=== PATIENT | female | born 1955 | race African-American/Black ===

== ENCOUNTER 2021-02-02 16:19 | Emergency (ER) | payer OTHER ==
[2021-02-02 17:13] VITALS: BP 167/90; PULSE 90; TEMP 98.6; BMI 23.4
[2021-02-02] MEDS ORDERED: LIDOCAINE 5% TOPICAL PATCH TP ONE (18:03)
[2021-02-02] MEDS ORDERED: ACETAMINOPHEN 1000 MG/100 ML VIAL IVPB ONE (18:03)
[2021-02-02] MEDS ORDERED: ACETAMINOPHEN 325 MG TABLET (FP) PO ONE (18:22)
[2021-02-02] MEDS ORDERED: LIDOCAINE 5% TOPICAL PATCH ONE (18:33)
[2021-02-02] MEDS ORDERED: ACETAMINOPHEN 325 MG TABLET (FP) ONE (18:34)
[2021-02-02 19:27] LABS: EOS % 1.6 % (0-4.5); HEMATOCRIT 37.8 % (32.4-45.2); HEMOGLOBIN 12.9 GM/dL (10.7-15.3); LYMPH % 26.2 % (8-40); MCH 31.6 pg (25.7-33.7); MCHC 34.2 g/dl (32.0-36.0); MEAN CELL VOLUME 92.3 fl (80-96); MONO % 11.2 % (3.8-10.2); PLATELET COUNT 214 10^3/uL (134-434); RDW 13.5 % (11.6-15.6); WHITE BLOOD COUNT 6.1 K/mm3 (4.0-10.0)
[2021-02-02 19:28] LABS: CALCIUM 9.3 mg/dL (8.5-10.1)
[2021-02-02 19:29] LABS: ALBUMIN 3.7 g/dl (3.4-5.0)
[2021-02-02 19:32] LABS: CREATININE 1.1 mg/dL (0.55-1.3)
[2021-02-02 19:33] LABS: BILIRUBIN,TOTAL 0.8 mg/dL (0.2-1); TOT PROT 7.6 g/dl (6.4-8.2)
[2021-02-02] MEDS ORDERED: KETOROLAC TROMETHAMINE 15 MG/ML VIAL IVPUSH ONE (20:33)
[2021-02-02] MEDS ORDERED: KETOROLAC TROMETHAMINE 30 MG/1 ML VIAL ONE (22:00)
[2021-02-03] MEDS ORDERED: LIDOCAINE PATCH REMOVAL MC SCH (06:00)
== END 2021-02-02 22:27 | disposition home or self-care (01) ==
LOC: JER 16:19
PROC: 3E033GC Introduction of Other Therapeutic Substance into Peripheral Vein, Percutaneous Approach (ICD-10-PCS; principal; 2021-02-02)
DX: M54.50 Low back pain, unspecified (principal)
CPT/HCPCS: 36415; 72131-TC; 80053; 85025; 99285-25

== ENCOUNTER 2021-05-09 05:44 | Inpatient (IN) | payer OTHER ==
[2021-05-09 06:56] LABS: BASO % 0.6 % (0-2.0); EOS % 1.2 % (0-4.5); HEMATOCRIT 39.9 % (32.4-45.2); HEMOGLOBIN 13.4 GM/dL (10.7-15.3); MCHC 33.7 g/dl (32.0-36.0); MONO % 9.7 % (3.8-10.2); NEUT % 67.5 % (42.8-82.8); PLATELET COUNT 223 10^3/uL (134-434); RBC 4.34 M/mm3 (3.60-5.2); RDW 14.3 % (11.6-15.6); WHITE BLOOD COUNT 4.7 K/mm3 (4.0-10.0)
[2021-05-09 07:04] LABS: INR 0.98 (0.83-1.09); PROTHROMBIN TIME (PATIENT) 11.3 SEC (9.7-13.0)
[2021-05-09 07:07] LABS: ACTIVATED PTT 29.7 SECONDS (25.2-36.5)
[2021-05-09] MEDS ORDERED: ASPIRIN 81 MG CHEWABLE TABLETS PO ONE (08:20)
[2021-05-09] MEDS ORDERED: ASPIRIN 81 MG CHEWABLE TABLETS ONE (08:32)
[2021-05-09 10:13] LABS: ALBUMIN 3.7 g/dl (3.4-5.0); CALCIUM 9.2 mg/dL (8.5-10.1)
[2021-05-09 10:18] LABS: BILIRUBIN,TOTAL 0.6 mg/dL (0.2-1); TOT PROT 7.2 g/dl (6.4-8.2)
[2021-05-09] MEDS: SODIUM CHLORIDE 1,000 ML IV SCH ×2 (16:29→22:00)
[2021-05-09 21:49] VITALS: BMI 23.4
[2021-05-10] MEDS: INSULIN SLIDING SCALE (NOVOLOG) 1 VIAL SQ SCH ×2 (06:03→12:28)
[2021-05-10 07:11] LABS: BASO % 0.7 % (0-2.0); HEMATOCRIT 39.2 % (32.4-45.2); MCH 30.8 pg (25.7-33.7); MCHC 33.2 g/dl (32.0-36.0); MEAN PLT VOLUME 8.6 fl (7.5-11.1); MONO % 8.8 % (3.8-10.2); NEUT % 56.5 % (42.8-82.8); PLATELET COUNT 226 10^3/uL (134-434); RBC 4.22 M/mm3 (3.60-5.2); RDW 14.2 % (11.6-15.6); WHITE BLOOD COUNT 4.1 K/mm3 (4.0-10.0)
[2021-05-10 07:36] LABS: ALBUMIN 3.7 g/dl (3.4-5.0); BLOOD UREA NITROGEN 14.6 mg/dL (7-18); CALCIUM 8.7 mg/dL (8.5-10.1); MAGNESIUM 2.2 mg/dL (1.8-2.4)
[2021-05-10 07:39] LABS: BILIRUBIN,TOTAL 0.7 mg/dL (0.2-1); CREATININE 1.1 mg/dL (0.55-1.3); TOT PROT 7.4 g/dl (6.4-8.2)
[2021-05-10 08:15] LABS: URINE APPEARANCE CLEAR; URINE BILIRUBIN NEGATIVE (NEGATIVE); URINE COLOR YELLOW; URINE GLUCOSE (UA) 3+ (NEGATIVE); URINE KETONE NEGATIVE (NEGATIVE); URINE LEUK ESTERASE NEGATIVE (NEGATIVE); URINE NITRITE NEGATIVE (NEGATIVE); URINE PROTEIN NEGATIVE (NEGATIVE); URINE UROBILINOGEN 0.2 mg/dL (0.2-1.0)
[2021-05-10] MEDS ORDERED: ENOXAPARIN NA (PORCINE) 40 MG/0.4 ML DISP.SYRIN SQ SCH (10:00)
[2021-05-10 10:11] VITALS: BP 116/56; PULSE 91; TEMP 98.1
== END 2021-05-10 18:19 | disposition home or self-care (01) | DRG 312 ==
LOC: JER 05:44 → JERBED 11:27 → OBSVTOIN 12:54 → J4W 19:33
PROVIDERS: ADMIT Internal Medicine
DX: R55 Syncope and collapse (principal); I10 Essential (primary) hypertension; E11.9 Type 2 diabetes mellitus without complications; R42 Dizziness and giddiness; R60.0 Localized edema; E78.5 Hyperlipidemia, unspecified
CPT/HCPCS: 36415; 70450-TC; 71045-TC-FY; 72125-TC; 80053; 80061; 81003; 82550; 82962; 83036; 83735; 84100; 84443; 84484; 85025; 85027; 85610; 85730; 87086; 93005; 93010; 93306-TC; 93880-TC; 99285-25; C9803-CS; G0378; U0003; U0005

== ENCOUNTER 2021-05-16 04:35 | Emergency (ER) | payer OTHER ==
[2021-05-16] MEDS ORDERED: ACETAMINOPHEN 325 MG TABLET (FP) PO ONE ×3 (05:10→05:27)
[2021-05-16] MEDS ORDERED: ACETAMINOPHEN 325 MG TABLET (FP) ONE (05:23)
[2021-05-16 05:24] VITALS: BMI 24.6
[2021-05-16] MEDS ORDERED: LIDOCAINE HCL 2% (50ML VIAL) SQ ONE (06:38)
[2021-05-16] MEDS ORDERED: LIDOCAINE HCL 2% (20ML MULTI-DOSE VIAL) ONE (06:44)
[2021-05-16 08:50] VITALS: TEMP 98.1
[2021-05-16 14:47] VITALS: BP 162/61; PULSE 82
== END 2021-05-16 13:30 ==
LOC: JER 04:35
PROC: 0PSJXZZ Reposition Left Radius, External Approach (ICD-10-PCS; principal; 2021-05-16)
DX: S69.92XA Unspecified injury of left wrist, hand and finger(s), initial encounter (principal); E16.2 Hypoglycemia, unspecified; W01.0XXA Fall on same level from slipping, tripping and stumbling without subsequent striking against object, initial encounter
CPT/HCPCS: 73090-TC-LT-FY; 73110-TC-LT-FY; 73130-TC-LT-FY; 82962; 93005; 93010; 99285-25

== ENCOUNTER 2021-05-19 14:50 | Emergency (ER) | payer OTHER ==
[2021-05-19 15:18] VITALS: BP 138/71; PULSE 88; TEMP 98.4; BMI 21.1
== END 2021-05-19 23:11 | disposition home or self-care (01) ==
LOC: JER 14:50
DX: S52.502A Unspecified fracture of the lower end of left radius, initial encounter for closed fracture (principal); Y99.9 Unspecified external cause status; Z48.00 Encounter for change or removal of nonsurgical wound dressing
CPT/HCPCS: 73110-TC-LT-FY; 82962; 99284-25

== ENCOUNTER 2021-06-05 03:44 | Observation (INO) | payer OTHER ==
[2021-06-05 05:51] LABS: BASO % 1.1 % (0-2.0); EOS % 1.3 % (0-4.5); HEMATOCRIT 40.5 % (32.4-45.2); HEMOGLOBIN 13.4 GM/dL (10.7-15.3); LYMPH % 23.5 % (8-40); MCH 30.6 pg (25.7-33.7); MCHC 33.2 g/dl (32.0-36.0); MEAN CELL VOLUME 92.3 fl (80-96); MEAN PLT VOLUME 8.7 fl (7.5-11.1); MONO % 10.4 % (3.8-10.2); NEUT % 63.7 % (42.8-82.8); PLATELET COUNT 258 10^3/uL (134-434); RBC 4.39 M/mm3 (3.60-5.2); RDW 14.9 % (11.6-15.6); WHITE BLOOD COUNT 4.3 K/mm3 (4.0-10.0)
[2021-06-05] MEDS ORDERED: LACTATED RINGERS SOLUTION 1000 ML INFUS.BAG IV ONE (05:53)
[2021-06-05 06:12] LABS: CALCIUM 9.3 mg/dL (8.5-10.1)
[2021-06-05 06:13] LABS: BLOOD UREA NITROGEN 15.2 mg/dL (7-18); MAGNESIUM 2.5 mg/dL (1.8-2.4)
[2021-06-05 06:17] LABS: BILIRUBIN,TOTAL 0.5 mg/dL (0.2-1)
[2021-06-05 06:18] LABS: TOT PROT 7.6 g/dl (6.4-8.2)
[2021-06-05 06:34] LABS: PH,URINE 7.5 (5.0-8.0); URINE APPEARANCE CLOUDY; URINE BILIRUBIN NEGATIVE (NEGATIVE); URINE COLOR YELLOW; URINE GLUCOSE (UA) NEGATIVE (NEGATIVE); URINE KETONE NEGATIVE (NEGATIVE); URINE LEUK ESTERASE NEGATIVE (NEGATIVE); URINE NITRITE NEGATIVE (NEGATIVE); URINE PROTEIN NEGATIVE (NEGATIVE)
[2021-06-05] MEDS ORDERED: SODIUM CHLORIDE 1,000 ML IV SCH (09:00)
[2021-06-05] MEDS: INSULIN SLIDING SCALE (NOVOLOG) 1 VIAL SQ SCH ×3 (11:45→22:00)
[2021-06-05] MEDS: ENOXAPARIN NA (PORCINE) 40 MG/0.4 ML DISP.SYRIN SQ SCH (11:46)
[2021-06-05] MEDS: SODIUM CHLORIDE 1,000 ML IV SCH (14:21)
[2021-06-05] MEDS ORDERED: INSULIN (NOVOLOG) ASPART 100 UNITS/ML 10ML VIAL ONE (16:30)
[2021-06-05] MEDS: DONEPEZIL HCL 5 MG TABLET (FP) PO SCH (21:56)
[2021-06-05] MEDS: ATORVASTATIN CA 10 MG TABLET (FP) PO SCH (21:56)
[2021-06-06] MEDS: INSULIN SLIDING SCALE (NOVOLOG) 1 VIAL SQ SCH ×4 (06:32→21:22)
[2021-06-06 08:27] LABS: HEMOGLOBIN 12.7 GM/dL (10.7-15.3); MCH 31.1 pg (25.7-33.7); MCHC 33.6 g/dl (32.0-36.0); MEAN CELL VOLUME 92.6 fl (80-96); MEAN PLT VOLUME 9.2 fl (7.5-11.1); PLATELET COUNT 165 10^3/uL (134-434); RDW 14.3 % (11.6-15.6); WHITE BLOOD COUNT 4.2 K/mm3 (4.0-10.0)
[2021-06-06 09:05] LABS: BLOOD UREA NITROGEN 8.1 mg/dL (7-18); MAGNESIUM 2.3 mg/dL (1.8-2.4)
[2021-06-06 09:08] LABS: CREATININE 0.9 mg/dL (0.55-1.3)
[2021-06-06 09:09] LABS: PHOSPHOROUS 3.2 mg/dL (2.5-4.9)
[2021-06-06] MEDS: ENOXAPARIN NA (PORCINE) 40 MG/0.4 ML DISP.SYRIN SQ SCH (10:18)
[2021-06-06] MEDS ORDERED: INSULIN (NOVOLOG) ASPART 100 UNITS/ML 10ML VIAL ONE ×4 (12:08→20:57)
[2021-06-06] MEDS: ASPIRIN COATED 81 MG TABLET.EC PO SCH (12:18)
[2021-06-06 14:47] VITALS: BMI 23.2
[2021-06-06] MEDS: SODIUM CHLORIDE 1,000 ML IV SCH (21:23)
[2021-06-06] MEDS: ATORVASTATIN CA 10 MG TABLET (FP) PO SCH (21:23)
[2021-06-06] MEDS: DONEPEZIL HCL 5 MG TABLET (FP) PO SCH (21:23)
[2021-06-07] MEDS: INSULIN SLIDING SCALE (NOVOLOG) 1 VIAL SQ SCH (07:37)
[2021-06-07 08:31] LABS: BASO % 0.6 % (0-2.0); EOS % 1.9 % (0-4.5); HEMATOCRIT 37.5 % (32.4-45.2); HEMOGLOBIN 12.3 GM/dL (10.7-15.3); LYMPH % 27.1 % (8-40); MCH 30.3 pg (25.7-33.7); MCHC 32.9 g/dl (32.0-36.0); MEAN CELL VOLUME 92.1 fl (80-96); MEAN PLT VOLUME 9.3 fl (7.5-11.1); NEUT % 57.4 % (42.8-82.8); PLATELET COUNT 233 10^3/uL (134-434); RBC 4.07 M/mm3 (3.60-5.2); RDW 13.9 % (11.6-15.6); WHITE BLOOD COUNT 3.6 K/mm3 (4.0-10.0)
[2021-06-07 08:57] LABS: BLOOD UREA NITROGEN 10.4 mg/dL (7-18); CALCIUM 8.9 mg/dL (8.5-10.1); MAGNESIUM 1.9 mg/dL (1.8-2.4)
[2021-06-07] MEDS: ENOXAPARIN NA (PORCINE) 40 MG/0.4 ML DISP.SYRIN SQ SCH (09:51)
[2021-06-07] MEDS: ASPIRIN COATED 81 MG TABLET.EC PO SCH (09:51)
[2021-06-07] MEDS: SODIUM CHLORIDE 1,000 ML IV SCH (09:56)
[2021-06-07] MEDS ORDERED: INSULIN SLIDING SCALE (NOVOLOG) 1 VIAL SQ SCH (09:58)
[2021-06-07] MEDS ORDERED: LOSARTAN POTASSIUM 50 MG TABLET PO SCH (10:00)
[2021-06-07] MEDS ORDERED: INSULIN (NOVOLOG) ASPART 100 UNITS/ML 10ML VIAL ONE (11:19)
[2021-06-07] MEDS: INSULIN (LEVEMIR) 100 UNITS/ML UNITS SQ SCH ×2 (11:21→11:23)
[2021-06-07 15:50] VITALS: BP 117/74; PULSE 77; TEMP 99.1
== END 2021-06-07 17:35 | disposition home or self-care (01) ==
LOC: JER 03:44 → JERBED 05:52 → INTOOBSV 05:52 → UNDOADMOB 05:52 → JERBED 08:28 → J8W 09:25
PROVIDERS: ADMIT Internal Medicine; ATTEND Internal Medicine
PROC: 3E023GC Introduction of Other Therapeutic Substance into Muscle, Percutaneous Approach (ICD-10-PCS; principal; 2021-06-05)
PROC: 3E013VG Introduction of Insulin into Subcutaneous Tissue, Percutaneous Approach (ICD-10-PCS; 2021-06-05)
PROC: 3E0337Z Introduction of Electrolytic and Water Balance Substance into Peripheral Vein, Percutaneous Approach (ICD-10-PCS; 2021-06-05)
DX: E10.649 Type 1 diabetes mellitus with hypoglycemia without coma (principal); E86.0 Dehydration; J45.909 Unspecified asthma, uncomplicated; R55 Syncope and collapse; R53.1 Weakness; Z91.018 Allergy to other foods; Z96.651 Presence of right artificial knee joint; Z29.8 Encounter for other specified prophylactic measures; Z88.0 Allergy status to penicillin
CPT/HCPCS: 36415; 59025; 70450-TC; 80048; 80053; 81003; 82962; 83036; 83735; 84100; 84484; 85025; 85027; 86850; 86900; 86901; 87086; 93005; 93010; 93880-TC; 96360; 96372; 97116-GP; 97161-GP; 99285-25; C9803-CS; G0378; G0463-25; U0003; U0005

== ENCOUNTER 2021-06-22 07:15 | Emergency (ER) | payer OTHER ==
[2021-06-22 08:12] LABS: EOS % 0.9 % (0-4.5); HEMATOCRIT 39.2 % (32.4-45.2); HEMOGLOBIN 12.8 GM/dL (10.7-15.3); MCH 30.4 pg (25.7-33.7); MCHC 32.7 g/dl (32.0-36.0); MEAN CELL VOLUME 93.2 fl (80-96); MEAN PLT VOLUME 8.9 fl (7.5-11.1); MONO % 10.7 % (3.8-10.2); NEUT % 62.4 % (42.8-82.8); PLATELET COUNT 240 10^3/uL (134-434); RBC 4.21 M/mm3 (3.60-5.2); RDW 14.6 % (11.6-15.6); WHITE BLOOD COUNT 4.4 K/mm3 (4.0-10.0)
[2021-06-22 08:22] VITALS: TEMP 98.4; BMI 21.4
[2021-06-22 08:32] LABS: BLOOD UREA NITROGEN 13.8 mg/dL (7-18); CALCIUM 9.4 mg/dL (8.5-10.1)
[2021-06-22 08:33] LABS: ALBUMIN 3.7 g/dl (3.4-5.0)
[2021-06-22 08:38] LABS: BILIRUBIN,TOTAL 0.7 mg/dL (0.2-1); TOT PROT 7.2 g/dl (6.4-8.2)
[2021-06-22 10:11] LABS: EPI CELLS >36 /uL (0-25.1); HYALINE CASTS 2 /uL (0-3.1); URINE APPEARANCE CLEAR; URINE BACTERIA 134 /uL (0-1359); URINE BILIRUBIN NEGATIVE (NEGATIVE); URINE COLOR YELLOW; URINE GLUCOSE (UA) 1+ (NEGATIVE); URINE KETONE 1+ (NEGATIVE); URINE LEUK ESTERASE TRACE (NEGATIVE); URINE NITRITE NEGATIVE (NEGATIVE); URINE PROTEIN 1+ (NEGATIVE); URINE RBC 9 /uL (0-23.9); URINE WBC 14 /uL (0-25.8)
[2021-06-22 11:09] VITALS: BP 162/80; PULSE 82
== END 2021-06-22 12:47 ==
LOC: JER 07:15
DX: R42 Dizziness and giddiness (principal); R51.9 Headache, unspecified; E04.1 Nontoxic single thyroid nodule; W06.XXXA Fall from bed, initial encounter
CPT/HCPCS: 36415; 70450-TC; 71045-TC-FY; 72125-TC; 80053; 81003; 82962; 84484; 85025; 87086; 93005; 93010; 99285-25

== ENCOUNTER 2021-07-02 07:05 | Emergency (ER) | payer OTHER ==
[2021-07-02 07:22] VITALS: BMI 23.4
[2021-07-02 08:30] LABS: BASO % 0.4 % (0-2.0); HEMOGLOBIN 13.9 GM/dL (10.7-15.3); LYMPH % 23.8 % (8-40); MCH 30.7 pg (25.7-33.7); MCHC 33.2 g/dl (32.0-36.0); MEAN CELL VOLUME 92.5 fl (80-96); MEAN PLT VOLUME 8.1 fl (7.5-11.1); MONO % 8.2 % (3.8-10.2); NEUT % 65.6 % (42.8-82.8); PLATELET COUNT 267 10^3/uL (134-434); RBC 4.54 M/mm3 (3.60-5.2); RDW 14.8 % (11.6-15.6); WHITE BLOOD COUNT 4.4 K/mm3 (4.0-10.0)
[2021-07-02 09:24] LABS: EPI CELLS >36 /uL (0-25.1); HYALINE CASTS 4 /uL (0-3.1); URINE APPEARANCE CLEAR; URINE BACTERIA 83 /uL (0-1359); URINE BILIRUBIN NEGATIVE (NEGATIVE); URINE COLOR YELLOW; URINE GLUCOSE (UA) NEGATIVE (NEGATIVE); URINE KETONE 1+ (NEGATIVE); URINE LEUK ESTERASE 2+ (NEGATIVE); URINE NITRITE NEGATIVE (NEGATIVE); URINE PROTEIN TRACE (NEGATIVE); URINE RBC 12 /uL (0-23.9); URINE WBC 273 /uL (0-25.8)
[2021-07-02 09:26] LABS: ALBUMIN 4.1 g/dl (3.4-5.0); BLOOD UREA NITROGEN 13.2 mg/dL (7-18); CALCIUM 9.6 mg/dL (8.5-10.1)
[2021-07-02 09:28] LABS: MAGNESIUM 2.4 mg/dL (1.8-2.4)
[2021-07-02 09:32] LABS: BILIRUBIN,TOTAL 0.7 mg/dL (0.2-1); TOT PROT 7.9 g/dl (6.4-8.2)
[2021-07-02] MEDS ORDERED: SULFAMETHOXAZOLE/TRIMETHOPRIM 800MG/160MG D.S. TABLET PO ONE (11:23)
[2021-07-02] MEDS ORDERED: SULFAMETHOXAZOLE/TRIMETHOPRIM 800MG/160MG D.S. TABLET ONE (11:36)
[2021-07-02 11:42] VITALS: BP 136/79; PULSE 72; TEMP 97.4
== END 2021-07-02 12:32 | disposition home or self-care (01) ==
LOC: JER 07:05
DX: R73.9 Hyperglycemia, unspecified (principal); R55 Syncope and collapse; E11.9 Type 2 diabetes mellitus without complications; Z79.4 Long term (current) use of insulin
CPT/HCPCS: 36415; 70450-TC; 71046-TC-FY; 72125-TC; 80053; 81003; 82550; 82553; 82962; 83735; 84484; 85025; 87086; 93005; 93010; 99285-25

== ENCOUNTER 2021-10-30 18:19 | Inpatient (IN) | payer OTHER ==
[2021-10-30 18:39] VITALS: BMI 21.4
[2021-10-30 19:10] LABS: VENOUS O2 SATURATION 42.6 % (70-80); VENOUS PCO2 47.6 mmHg (38-52); VENOUS PH 7.341 (7.310-7.410)
[2021-10-30 19:11] LABS: BASO % 1.1 % (0-2.0); EOS % 1.9 % (0-4.5); HEMATOCRIT 37.4 % (32.4-45.2); HEMOGLOBIN 12.5 GM/dL (10.7-15.3); MCH 31.6 pg (25.7-33.7); MCHC 33.5 g/dl (32.0-36.0); MEAN CELL VOLUME 94.2 fl (80-96); MEAN PLT VOLUME 8.5 fl (7.5-11.1); MONO % 8.5 % (3.8-10.2); NEUT % 67.5 % (42.8-82.8); PLATELET COUNT 199 10^3/uL (134-434); RBC 3.97 M/mm3 (3.60-5.2); RDW 14.2 % (11.6-15.6); WHITE BLOOD COUNT 5.9 K/mm3 (4.0-10.0)
[2021-10-30] MEDS ORDERED: LACTATED RINGERS SOLUTION 1000 ML INFUS.BAG IV ONE (19:25)
[2021-10-30] MEDS ORDERED: dilTIAZem HCL 50 MG/10 ML - 10 ML VIAL IVPUSH ONE ×2 (19:26→20:36)
[2021-10-30 19:31] LABS: ALBUMIN 3.5 g/dl (3.4-5.0)
[2021-10-30 19:32] LABS: BLOOD UREA NITROGEN 19.9 mg/dL (7-18); MAGNESIUM 2.3 mg/dL (1.8-2.4)
[2021-10-30 19:35] LABS: CREATININE 1.4 mg/dL (0.55-1.3)
[2021-10-30 19:36] LABS: BILIRUBIN,TOTAL 0.5 mg/dL (0.2-1); TOT PROT 6.9 g/dl (6.4-8.2)
[2021-10-30 20:02] LABS: EPI CELLS 13 /uL (0-25.1); HYALINE CASTS 0 /uL (0-3.1); URINE APPEARANCE CLEAR; URINE BACTERIA 64 /uL (0-1359); URINE BILIRUBIN NEGATIVE (NEGATIVE); URINE COLOR YELLOW; URINE GLUCOSE (UA) 2+ (NEGATIVE); URINE KETONE NEGATIVE (NEGATIVE); URINE LEUK ESTERASE 1+ (NEGATIVE); URINE NITRITE NEGATIVE (NEGATIVE); URINE PROTEIN NEGATIVE (NEGATIVE); URINE RBC 5 /uL (0-23.9); URINE UROBILINOGEN 0.2 mg/dL (0.2-1.0); URINE WBC 46 /uL (0-25.8)
[2021-10-30] MEDS ORDERED: dilTIAZem HCL 125 MG/25 ML - 25 ML VIAL ONE (20:03)
[2021-10-30] MEDS ORDERED: dilTIAZem HCL 30 MG TABLET PO ONE (20:36)
[2021-10-30] MEDS ORDERED: dilTIAZem HCL 30 MG TABLET ONE (21:42)
[2021-10-31] MEDS ORDERED: APIXABAN 2.5 MG TABLET PO ONE (01:49)
[2021-10-31] MEDS ORDERED: APIXABAN 2.5 MG TABLET ONE (02:26)
[2021-10-31 02:31] VITALS: RESP 18
[2021-10-31 07:30] LABS: BASO % 0.7 % (0-2.0); EOS % 1.4 % (0-4.5); HEMATOCRIT 38.9 % (32.4-45.2); HEMOGLOBIN 12.9 GM/dL (10.7-15.3); LYMPH % 25.2 % (8-40); MCHC 33.2 g/dl (32.0-36.0); MEAN CELL VOLUME 93.4 fl (80-96); MEAN PLT VOLUME 9.2 fl (7.5-11.1); MONO % 10.9 % (3.8-10.2); NEUT % 61.8 % (42.8-82.8); PLATELET COUNT 217 10^3/uL (134-434); RBC 4.16 M/mm3 (3.60-5.2); RDW 13.9 % (11.6-15.6); WHITE BLOOD COUNT 4.4 K/mm3 (4.0-10.0)
[2021-10-31 07:56] LABS: BLOOD UREA NITROGEN 13.8 mg/dL (7-18); CALCIUM 8.4 mg/dL (8.5-10.1)
[2021-10-31 07:57] LABS: ALBUMIN 3.2 g/dl (3.4-5.0)
[2021-10-31 07:59] LABS: CREATININE 1.1 mg/dL (0.55-1.3)
[2021-10-31 08:01] LABS: BILIRUBIN,TOTAL 0.6 mg/dL (0.2-1); TOT PROT 6.3 g/dl (6.4-8.2)
[2021-10-31] MEDS ORDERED: PATIENT'S OWN MEDICATION (NON-FORMULARY) (Insulin Aspart [Novolog Flexpen] 100 UNIT/ML Ins SQ SCH (09:00)
[2021-10-31] MEDS ORDERED: ATORVASTATIN CA 40 MG TABLET (FP) ONE (09:21)
[2021-10-31] MEDS: ATORVASTATIN CA 10 MG TABLET (FP) PO SCH (09:44)
[2021-10-31] MEDS: LOSARTAN POTASSIUM 50 MG TABLET PO SCH (09:44)
[2021-10-31] MEDS ORDERED: LOSARTAN POTASSIUM 50 MG TABLET PO SCH (10:00)
[2021-10-31] MEDS ORDERED: DONEPEZIL HCL 5 MG TABLET (FP) PO SCH (10:00)
[2021-10-31 10:05] LABS: PHOSPHOROUS 2.8 mg/dL (2.5-4.9)
[2021-10-31 10:09] LABS: N-TERMINAL BNP 397.5 pg/ml (5-125)
[2021-10-31] MEDS ORDERED: INSULIN (NOVOLOG) ASPART 100 UNITS/ML 10ML VIAL ONE (13:26)
[2021-10-31] MEDS: INSULIN SLIDING SCALE (NOVOLOG) 1 VIAL SQ SCH ×2 (13:27→23:35)
[2021-11-01] MEDS ORDERED: INSULIN (LEVEMIR) 100 UNITS/ML UNITS SQ SCH (07:00)
[2021-11-01] MEDS: INSULIN SLIDING SCALE (NOVOLOG) 1 VIAL SQ SCH ×2 (08:01→12:22)
[2021-11-01 08:19] LABS: BASO % 1.3 % (0-2.0); EOS % 1.6 % (0-4.5); HEMATOCRIT 42.2 % (32.4-45.2); HEMOGLOBIN 13.8 GM/dL (10.7-15.3); LYMPH % 32.5 % (8-40); MCH 30.8 pg (25.7-33.7); MCHC 32.8 g/dl (32.0-36.0); MEAN CELL VOLUME 93.9 fl (80-96); MONO % 7.7 % (3.8-10.2); NEUT % 56.9 % (42.8-82.8); PLATELET COUNT 247 10^3/uL (134-434); RBC 4.49 M/mm3 (3.60-5.2); WHITE BLOOD COUNT 5.2 K/mm3 (4.0-10.0)
[2021-11-01 08:49] LABS: BLOOD UREA NITROGEN 15.8 mg/dL (7-18); CALCIUM 9.1 mg/dL (8.5-10.1)
[2021-11-01 08:52] LABS: CREATININE 1.2 mg/dL (0.55-1.3)
[2021-11-01] MEDS ORDERED: ASPIRIN 81 MG CHEWABLE TABLETS PO SCH (10:00)
[2021-11-01] MEDS ORDERED: ASPIRIN 81 MG CHEWABLE TABLETS ONE (12:07)
[2021-11-01] MEDS ORDERED: LOSARTAN POTASSIUM 50 MG TABLET ONE (12:08)
[2021-11-01] MEDS ORDERED: ATORVASTATIN CA 10 MG TABLET (FP) ONE (12:09)
[2021-11-01 12:20] VITALS: BP 165/73; PULSE 79; TEMP 98.1
[2021-11-01] MEDS: ATORVASTATIN CA 10 MG TABLET (FP) PO SCH (12:22)
[2021-11-01] MEDS: LOSARTAN POTASSIUM 50 MG TABLET PO SCH (12:22)
== END 2021-11-01 12:35 | disposition home or self-care (01) | DRG 639 ==
LOC: JER 18:19 → JERBED 21:54
PROVIDERS: ADMIT Internal Medicine; ATTEND Internal Medicine
DX: E11.649 Type 2 diabetes mellitus with hypoglycemia without coma (principal); R55 Syncope and collapse; I48.91 Unspecified atrial fibrillation; I10 Essential (primary) hypertension; I87.2 Venous insufficiency (chronic) (peripheral); E78.5 Hyperlipidemia, unspecified; E86.0 Dehydration; F03.90 Unspecified dementia, unspecified severity, without behavioral disturbance, psychotic disturbance, mood disturbance, and anxiety
CPT/HCPCS: 0241U-QW; 36415; 70450-TC; 71045-TC-FY; 80048; 80053; 80061; 81003; 82803; 82962; 83036; 83735; 83880; 84100; 84439; 84443; 84484; 85025; 87086; 93005; 93010; 93306-TC; 99285-25

== ENCOUNTER 2021-12-25 20:53 | Emergency (ER) | payer OTHER ==
[2021-12-25 21:24] VITALS: BP 136/67; PULSE 79; RESP 17; TEMP 97.3; BMI 21.9
== END 2021-12-26 02:42 ==
LOC: JER 20:53
DX: E16.2 Hypoglycemia, unspecified (principal)
CPT/HCPCS: 82962; 93005; 93010; 99284-25

== ENCOUNTER 2022-12-03 18:19 | Observation (INO) | payer OTHER ==
[2022-12-03 18:54] VITALS: BMI 28.3
[2022-12-03] MEDS ORDERED: SODIUM CHLORIDE 0.9% 500 ML INFUS.BAG IV ONE (20:03)
[2022-12-03 21:25] LABS: VENOUS BASE EXCESS 0.6 mmol/L (-2-2); VENOUS O2 SATURATION 45.7 % (70-80); VENOUS PH 7.338 (7.310-7.410)
[2022-12-03 21:28] LABS: BASO % 0.6 % (0-2.0); EOS % 0.7 % (0-4.5); HEMATOCRIT 39.5 % (32.4-45.2); HEMOGLOBIN 13.5 GM/dL (10.7-15.3); LYMPH % 16.3 % (8-40); MCH 31.8 pg (25.7-33.7); MCHC 34.1 g/dl (32.0-36.0); MEAN CELL VOLUME 93.3 fl (80-96); MEAN PLT VOLUME 7.4 fl (7.5-11.1); MONO % 5.5 % (3.8-10.2); NEUT % 76.9 % (42.8-82.8); PLATELET COUNT 231 10^3/uL (134-434); RBC 4.24 M/mm3 (3.60-5.2); RDW 13.7 % (11.6-15.6); WHITE BLOOD COUNT 8.3 K/mm3 (4.0-10.0)
[2022-12-03 21:35] LABS: INR 0.95 (0.83-1.09)
[2022-12-03 21:38] LABS: ACTIVATED PTT 30.7 SECONDS (25.2-36.5)
[2022-12-03 21:39] LABS: URINE APPEARANCE CLEAR; URINE BILIRUBIN NEGATIVE (NEGATIVE); URINE COLOR YELLOW; URINE GLUCOSE (UA) 3+ (NEGATIVE); URINE KETONE NEGATIVE (NEGATIVE); URINE LEUK ESTERASE NEGATIVE (NEGATIVE); URINE NITRITE NEGATIVE (NEGATIVE); URINE PROTEIN NEGATIVE (NEGATIVE)
[2022-12-03 21:47] LABS: POTASSIUM 3.8 mmol/L (3.5-5.1)
[2022-12-03 21:49] LABS: ALBUMIN 3.5 g/dl (3.4-5.0); CALCIUM 8.7 mg/dL (8.5-10.1)
[2022-12-03 21:50] LABS: BLOOD UREA NITROGEN 17.7 mg/dL (7-18); MAGNESIUM 2.1 mg/dL (1.8-2.4)
[2022-12-03 21:53] LABS: CREATININE 1.3 mg/dL (0.55-1.3)
[2022-12-03 21:54] LABS: BILIRUBIN,TOTAL 0.4 mg/dL (0.2-1); TOT PROT 7.1 g/dl (6.4-8.2)
[2022-12-04] MEDS ORDERED: DEXTROSE 5%-NORMAL SALINE 1,000 ML IV SCH (03:15)
[2022-12-04 06:24] VITALS: RESP 18
[2022-12-04] MEDS: INSULIN SLIDING SCALE (NOVOLOG) 1 VIAL SQ SCH ×2 (08:45→11:28)
[2022-12-04 09:00] LABS: BASO % 0.6 % (0-2.0); EOS % 2.5 % (0-4.5); HEMATOCRIT 41.1 % (32.4-45.2); HEMOGLOBIN 13.4 GM/dL (10.7-15.3); LYMPH % 27.7 % (8-40); MCH 30.9 pg (25.7-33.7); MCHC 32.6 g/dl (32.0-36.0); MEAN CELL VOLUME 94.9 fl (80-96); MEAN PLT VOLUME 8.8 fl (7.5-11.1); MONO % 9.3 % (3.8-10.2); NEUT % 59.9 % (42.8-82.8); PLATELET COUNT 210 10^3/uL (134-434); RBC 4.33 M/mm3 (3.60-5.2); RDW 13.6 % (11.6-15.6); WHITE BLOOD COUNT 6.8 K/mm3 (4.0-10.0)
[2022-12-04 09:20] LABS: POTASSIUM 4.2 mmol/L (3.5-5.1)
[2022-12-04 09:21] LABS: BLOOD UREA NITROGEN 13.9 mg/dL (7-18); CALCIUM 8.4 mg/dL (8.5-10.1)
[2022-12-04 09:25] LABS: CREATININE 1.1 mg/dL (0.55-1.3)
[2022-12-04] MEDS ORDERED: CITALOPRAM HYDROBROMIDE 10 MG TABLET PO SCH (10:00)
[2022-12-04] MEDS ORDERED: CALCIUM 500MG/VIT-D 200 UNITS COMBO TABLET (FP) PO SCH (10:00)
[2022-12-04] MEDS ORDERED: FUROSEMIDE 20 MG TABLET (FP) PO SCH (10:00)
[2022-12-04] MEDS ORDERED: DONEPEZIL HCL 5 MG TABLET (FP) PO SCH (10:00)
[2022-12-04] MEDS ORDERED: LOSARTAN POTASSIUM 50 MG TABLET PO SCH (10:00)
[2022-12-04 10:57] VITALS: BP 121/58; PULSE 62; TEMP 97.3
[2022-12-04] MEDS ORDERED: ATORVASTATIN CA 20 MG TABLET (FP) PO SCH (22:00)
== END 2022-12-04 11:55 ==
LOC: JER 18:19 → JERBED 22:44
PROVIDERS: ADMIT Internal Medicine
PROC: 3E0337Z Introduction of Electrolytic and Water Balance Substance into Peripheral Vein, Percutaneous Approach (ICD-10-PCS; principal; 2022-12-03)
PROC: 3E013VG Introduction of Insulin into Subcutaneous Tissue, Percutaneous Approach (ICD-10-PCS; 2022-12-03)
DX: E11.649 Type 2 diabetes mellitus with hypoglycemia without coma (principal); F03.90 Unspecified dementia, unspecified severity, without behavioral disturbance, psychotic disturbance, mood disturbance, and anxiety; R55 Syncope and collapse; J45.909 Unspecified asthma, uncomplicated; Z91.018 Allergy to other foods; Z88.0 Allergy status to penicillin
CPT/HCPCS: 36415; 70450-TC; 71045-TC-FY; 72125-TC; 72170-TC-FY; 80048; 80053; 81003; 82010; 82803; 82962; 83036; 83735; 84484; 85025; 85610; 85730; 87077; 87086; 93005; 93010; 96360; 96372; 99285-25; G0378

== ENCOUNTER 2022-12-23 20:32 | Inpatient (IN) | payer OTHER ==
[2022-12-23] MEDS ORDERED: ACETAMINOPHEN 650 MG/20.3 ML ORAL SOLUTION (CUPS) PO ONE (23:35)
[2022-12-24] MEDS ORDERED: ACETAMINOPHEN 650 MG/20.3 ML ORAL SOLUTION (CUPS) ONE (00:04)
[2022-12-24] MEDS ORDERED: IBUPROFEN 400 MG TABLET (FP) PO ONE ×2 (00:19→00:22)
[2022-12-24 02:58] LABS: BASO % 0.7 % (0-2.0); EOS % 0.9 % (0-4.5); HEMATOCRIT 39.6 % (32.4-45.2); HEMOGLOBIN 13.6 GM/dL (10.7-15.3); LYMPH % 15.3 % (8-40); MCH 31.4 pg (25.7-33.7); MCHC 34.5 g/dl (32.0-36.0); MEAN CELL VOLUME 91.3 fl (80-96); MEAN PLT VOLUME 8.6 fl (7.5-11.1); MONO % 12.1 % (3.8-10.2); PLATELET COUNT 235 10^3/uL (134-434); RBC 4.33 M/mm3 (3.60-5.2); RDW 13.5 % (11.6-15.6); WHITE BLOOD COUNT 10.1 K/mm3 (4.0-10.0)
[2022-12-24 03:04] LABS: INR 1.01 (0.83-1.09); PROTHROMBIN TIME (PATIENT) 11.7 SEC (9.7-13.0)
[2022-12-24 03:07] LABS: ACTIVATED PTT 29.9 SECONDS (25.2-36.5)
[2022-12-24 03:35] LABS: POTASSIUM 3.7 mmol/L (3.5-5.1)
[2022-12-24 03:37] LABS: CALCIUM 9.3 mg/dL (8.5-10.1)
[2022-12-24 03:38] LABS: ALBUMIN 3.4 g/dl (3.4-5.0); BLOOD UREA NITROGEN 42.6 mg/dL (7-18)
[2022-12-24 03:41] LABS: CREATININE 1.8 mg/dL (0.55-1.3)
[2022-12-24 03:43] LABS: BILIRUBIN,TOTAL 0.8 mg/dL (0.2-1)
[2022-12-24] MEDS ORDERED: SODIUM CHLORIDE 1,000 ML IV STA (03:49)
[2022-12-24] MEDS: HEPARIN NA (PORCINE) 5,000 UNITS/ML 1ML VIAL SQ SCH ×3 (06:54→23:21)
[2022-12-24] MEDS: INSULIN SLIDING SCALE (NOVOLOG) 1 VIAL SQ SCH ×4 (06:54→23:22)
[2022-12-24] MEDS ORDERED: INSULIN (LEVEMIR) 100 UNITS/ML UNITS SQ SCH (07:00)
[2022-12-24] MEDS ORDERED: SODIUM CHLORIDE 1,000 ML IV SCH (07:15)
[2022-12-24 07:48] LABS: BASO % 0.7 % (0-2.0); EOS % 1.5 % (0-4.5); HEMATOCRIT 38.6 % (32.4-45.2); HEMOGLOBIN 12.7 GM/dL (10.7-15.3); LYMPH % 20.6 % (8-40); MCH 31.1 pg (25.7-33.7); MEAN CELL VOLUME 94.3 fl (80-96); MEAN PLT VOLUME 8.7 fl (7.5-11.1); MONO % 11.3 % (3.8-10.2); NEUT % 65.9 % (42.8-82.8); PLATELET COUNT 235 10^3/uL (134-434); RDW 13.4 % (11.6-15.6); WHITE BLOOD COUNT 8.9 K/mm3 (4.0-10.0)
[2022-12-24 08:00] LABS: CHLORIDE 103 mmol/L (98-107); POTASSIUM 4.3 mmol/L (3.5-5.1); SODIUM 137 mmol/L (136-145)
[2022-12-24 08:14] LABS: ALBUMIN 3.2 g/dl (3.4-5.0); ANION GAP 4 mmol/L (4-13); CALCIUM 9.1 mg/dL (8.5-10.1); CO2 29 mmol/L (21-32)
[2022-12-24 08:17] LABS: PHOSPHOROUS 2.2 mg/dL (2.5-4.9); SGOT/AST 21 U/L (15-37); SGPT/ALT 17 U/L (13-61); URIC ACID 6.6 mg/dL (2.6-7.2)
[2022-12-24 08:18] LABS: BILIRUBIN,TOTAL 0.9 mg/dL (0.2-1)
[2022-12-24 08:19] LABS: ALK PHOS 105 U/L (45-117); TOT PROT 6.6 g/dl (6.4-8.2)
[2022-12-24 08:21] LABS: MAGNESIUM 2.1 mg/dL (1.8-2.4)
[2022-12-24 08:27] LABS: CREATININE 1.9 mg/dL (0.55-1.3); GLUCOSE,RANDOM 47 mg/dL (74-106)
[2022-12-24] MEDS ORDERED: CITALOPRAM HYDROBROMIDE 10 MG TABLET ONE (09:04)
[2022-12-24] MEDS: CITALOPRAM HYDROBROMIDE 10 MG TABLET PO SCH (09:48)
[2022-12-24] MEDS: CALCIUM 500MG/VIT-D 200 UNITS COMBO TABLET (FP) PO SCH ×2 (09:48→18:20)
[2022-12-24] MEDS: DEXTROSE 5%-0.45% SALINE 1,000 ML IV SCH (13:40)
[2022-12-24] MEDS ORDERED: HEPARIN NA (PORCINE) 5,000 UNITS/ML 1ML VIAL ONE (13:48)
[2022-12-24] MEDS ORDERED: ONDANSETRON 4 MG/2 ML VIAL IVPUSH PRN (14:18)
[2022-12-24] MEDS ORDERED: ACETAMINOPHEN 325 MG TABLET (FP) PO PRN (14:20)
[2022-12-24] MEDS: SODIUM CHLORIDE 1,000 ML IV SCH (14:36)
[2022-12-24] MEDS ORDERED: FAMOTIDINE 20 MG/50 ML IVPB 20 MG/50 ML MG IVPB ONE (14:39)
[2022-12-24] MEDS: FAMOTIDINE 20 MG/50 ML IVPB 20 MG/50 ML MG IVPB SCH (14:41)
[2022-12-24] MEDS ORDERED: AZTREONAM 1 GM VIAL (RESTRICTED TO ID) ONE (18:11)
[2022-12-24] MEDS ORDERED: ACETAMINOPHEN 325 MG TABLET (FP) ONE (18:11)
[2022-12-24] MEDS: AZTREONAM 1 GM in DEXTROSE 5%-WATER - 50 ML IVPB SCH ×2 (18:19→18:26)
[2022-12-24 21:55] LABS: EOS % 0.6 % (0-4.5); HEMATOCRIT 39.7 % (32.4-45.2); HEMOGLOBIN 13.1 GM/dL (10.7-15.3); LYMPH % 5.1 % (8-40); MCH 30.8 pg (25.7-33.7); MCHC 33.1 g/dl (32.0-36.0); MEAN CELL VOLUME 93.3 fl (80-96); MEAN PLT VOLUME 8.6 fl (7.5-11.1); MONO % 7.9 % (3.8-10.2); NEUT % 85.4 % (42.8-82.8); PLATELET COUNT 221 10^3/uL (134-434); RBC 4.26 M/mm3 (3.60-5.2); RDW 13.3 % (11.6-15.6)
[2022-12-24 22:18] LABS: POTASSIUM 3.6 mmol/L (3.5-5.1)
[2022-12-24 22:22] LABS: CALCIUM 8.3 mg/dL (8.5-10.1)
[2022-12-24 22:23] LABS: BLOOD UREA NITROGEN 24.8 mg/dL (7-18)
[2022-12-24 22:26] LABS: CREATININE 1.4 mg/dL (0.55-1.3)
[2022-12-24 22:27] LABS: BILIRUBIN,TOTAL 1.3 mg/dL (0.2-1); TOT PROT 6.5 g/dl (6.4-8.2)
[2022-12-24] MEDS: ATORVASTATIN CA 20 MG TABLET (FP) PO SCH (23:21)
[2022-12-24] MEDS: DONEPEZIL HCL 10 MG TABLET (FP) PO SCH (23:21)
[2022-12-25 02:40] VITALS: BMI 23.2
[2022-12-25] MEDS: CALCIUM 500MG/VIT-D 200 UNITS COMBO TABLET (FP) PO SCH ×2 (06:26→16:00)
[2022-12-25] MEDS: HEPARIN NA (PORCINE) 5,000 UNITS/ML 1ML VIAL SQ SCH ×3 (06:26→21:31)
[2022-12-25] MEDS: INSULIN SLIDING SCALE (NOVOLOG) 1 VIAL SQ SCH ×4 (06:32→21:26)
[2022-12-25] MEDS: AZTREONAM 1 GM in DEXTROSE 5%-WATER - 50 ML IVPB SCH ×2 (07:03→15:59)
[2022-12-25] MEDS: DEXTROSE 5%-0.45% SALINE 1,000 ML IV SCH (07:04)
[2022-12-25 09:20] LABS: EPI CELLS 3 /uL (0-25.1); HYALINE CASTS 0 /uL (0-3.1); PH,URINE 6.5 (5.0-8.0); URINE APPEARANCE CLEAR; URINE BACTERIA 21 /uL (0-1359); URINE BILIRUBIN NEGATIVE (NEGATIVE); URINE COLOR YELLOW; URINE GLUCOSE (UA) 3+ (NEGATIVE); URINE KETONE NEGATIVE (NEGATIVE); URINE LEUK ESTERASE NEGATIVE (NEGATIVE); URINE NITRITE NEGATIVE (NEGATIVE); URINE PROTEIN NEGATIVE (NEGATIVE); URINE RBC 12 /uL (0-23.9); URINE WBC 3 /uL (0-25.8)
[2022-12-25 09:45] LABS: BASO % 0.5 % (0-2.0); EOS % 0.5 % (0-4.5); HEMATOCRIT 39.6 % (32.4-45.2); HEMOGLOBIN 13.7 GM/dL (10.7-15.3); LYMPH % 8.7 % (8-40); MCH 31.7 pg (25.7-33.7); MCHC 34.5 g/dl (32.0-36.0); MEAN PLT VOLUME 8.7 fl (7.5-11.1); MONO % 12.2 % (3.8-10.2); NEUT % 78.1 % (42.8-82.8); PLATELET COUNT 214 10^3/uL (134-434); RBC 4.31 M/mm3 (3.60-5.2); RDW 13.5 % (11.6-15.6)
[2022-12-25] MEDS ORDERED: REMDESIVIR 200 MG in SODIUM CHLORIDE 250 ML IVPB ONE (10:00)
[2022-12-25 10:29] LABS: BILIRUBIN,TOTAL 0.9 mg/dL (0.2-1); BLOOD UREA NITROGEN 19.3 mg/dL (7-18); CALCIUM 8.6 mg/dL (8.5-10.1); CREATININE 1.4 mg/dL (0.55-1.3); POTASSIUM 3.6 mmol/L (3.5-5.1); TOT PROT 6.8 g/dl (6.4-8.2)
[2022-12-25] MEDS: FAMOTIDINE 20 MG/50 ML IVPB 20 MG/50 ML MG IVPB SCH (10:32)
[2022-12-25] MEDS: CITALOPRAM HYDROBROMIDE 10 MG TABLET PO SCH (11:10)
[2022-12-25] MEDS: SODIUM CHLORIDE 1,000 ML IV SCH ×2 (11:10→15:58)
[2022-12-25] MEDS ORDERED: INSULIN (NOVOLOG) ASPART 100 UNITS/ML 10ML VIAL ONE (18:04)
[2022-12-25] MEDS: ATORVASTATIN CA 20 MG TABLET (FP) PO SCH (21:31)
[2022-12-25] MEDS: DONEPEZIL HCL 10 MG TABLET (FP) PO SCH (21:31)
[2022-12-26] MEDS: SODIUM CHLORIDE 1,000 ML IV SCH (01:44)
[2022-12-26] MEDS: HEPARIN NA (PORCINE) 5,000 UNITS/ML 1ML VIAL SQ SCH ×3 (05:29→22:29)
[2022-12-26] MEDS: INSULIN SLIDING SCALE (NOVOLOG) 1 VIAL SQ SCH ×4 (06:03→22:27)
[2022-12-26] MEDS: CALCIUM 500MG/VIT-D 200 UNITS COMBO TABLET (FP) PO SCH ×2 (06:06→17:26)
[2022-12-26] MEDS: FAMOTIDINE 20 MG/50 ML IVPB 20 MG/50 ML MG IVPB SCH (11:03)
[2022-12-26] MEDS: CITALOPRAM HYDROBROMIDE 10 MG TABLET PO SCH (11:03)
[2022-12-26] MEDS: REMDESIVIR 100 MG in SODIUM CHLORIDE 250 ML IVPB SCH (12:05)
[2022-12-26] MEDS: DONEPEZIL HCL 10 MG TABLET (FP) PO SCH (20:03)
[2022-12-26] MEDS: ATORVASTATIN CA 20 MG TABLET (FP) PO SCH (22:29)
[2022-12-27] MEDS: INSULIN SLIDING SCALE (NOVOLOG) 1 VIAL SQ SCH ×4 (06:40→22:37)
[2022-12-27] MEDS: HEPARIN NA (PORCINE) 5,000 UNITS/ML 1ML VIAL SQ SCH ×3 (06:41→22:37)
[2022-12-27] MEDS: CALCIUM 500MG/VIT-D 200 UNITS COMBO TABLET (FP) PO SCH ×2 (06:42→15:11)
[2022-12-27 08:26] LABS: BASO % 0.8 % (0-2.0); EOS % 3.6 % (0-4.5); HEMATOCRIT 37.4 % (32.4-45.2); HEMOGLOBIN 12.9 GM/dL (10.7-15.3); LYMPH % 36.6 % (8-40); MCH 31.5 pg (25.7-33.7); MCHC 34.4 g/dl (32.0-36.0); MEAN CELL VOLUME 91.5 fl (80-96); MEAN PLT VOLUME 8.9 fl (7.5-11.1); MONO % 19.4 % (3.8-10.2); NEUT % 39.6 % (42.8-82.8); PLATELET COUNT 205 10^3/uL (134-434); RBC 4.09 M/mm3 (3.60-5.2); WHITE BLOOD COUNT 4.1 K/mm3 (4.0-10.0)
[2022-12-27 09:21] LABS: POTASSIUM 3.5 mmol/L (3.5-5.1)
[2022-12-27 09:23] LABS: BLOOD UREA NITROGEN 21.3 mg/dL (7-18); CALCIUM 8.5 mg/dL (8.5-10.1)
[2022-12-27 09:24] LABS: ALBUMIN 2.9 g/dl (3.4-5.0)
[2022-12-27] MEDS: CITALOPRAM HYDROBROMIDE 10 MG TABLET PO SCH (09:29)
[2022-12-27] MEDS: FAMOTIDINE 20 MG TABLET PO SCH (09:29)
[2022-12-27] MEDS: REMDESIVIR 100 MG in SODIUM CHLORIDE 250 ML IVPB SCH (09:29)
[2022-12-27 09:33] LABS: BILIRUBIN,TOTAL 0.4 mg/dL (0.2-1); CREATININE 1.2 mg/dL (0.55-1.3); TOT PROT 6.3 g/dl (6.4-8.2)
[2022-12-27] MEDS: DONEPEZIL HCL 10 MG TABLET (FP) PO SCH (21:20)
[2022-12-27] MEDS ORDERED: INSULIN (NOVOLOG) ASPART 100 UNITS/ML 10ML VIAL ONE (21:20)
[2022-12-27] MEDS: ATORVASTATIN CA 20 MG TABLET (FP) PO SCH (22:38)
[2022-12-28] MEDS: HEPARIN NA (PORCINE) 5,000 UNITS/ML 1ML VIAL SQ SCH ×3 (06:43→22:12)
[2022-12-28] MEDS: INSULIN SLIDING SCALE (NOVOLOG) 1 VIAL SQ SCH ×4 (06:43→22:36)
[2022-12-28] MEDS: CALCIUM 500MG/VIT-D 200 UNITS COMBO TABLET (FP) PO SCH ×2 (07:42→17:08)
[2022-12-28] MEDS ORDERED: INSULIN (NOVOLOG) ASPART 100 UNITS/ML 10ML VIAL ONE ×3 (07:46→12:00)
[2022-12-28] MEDS: CITALOPRAM HYDROBROMIDE 10 MG TABLET PO SCH (09:50)
[2022-12-28] MEDS: FAMOTIDINE 20 MG TABLET PO SCH (09:50)
[2022-12-28] MEDS: ATORVASTATIN CA 20 MG TABLET (FP) PO SCH (22:11)
[2022-12-28] MEDS: DONEPEZIL HCL 10 MG TABLET (FP) PO SCH (22:11)
[2022-12-28 22:56] VITALS: RESP 18
[2022-12-29] MEDS: HEPARIN NA (PORCINE) 5,000 UNITS/ML 1ML VIAL SQ SCH ×3 (07:07→22:26)
[2022-12-29] MEDS: CALCIUM 500MG/VIT-D 200 UNITS COMBO TABLET (FP) PO SCH ×2 (07:07→15:54)
[2022-12-29] MEDS: INSULIN SLIDING SCALE (NOVOLOG) 1 VIAL SQ SCH ×4 (07:34→22:39)
[2022-12-29] MEDS: CITALOPRAM HYDROBROMIDE 10 MG TABLET PO SCH (11:44)
[2022-12-29] MEDS: FAMOTIDINE 20 MG TABLET PO SCH (11:44)
[2022-12-29] MEDS: ATORVASTATIN CA 20 MG TABLET (FP) PO SCH (22:25)
[2022-12-29] MEDS: DONEPEZIL HCL 10 MG TABLET (FP) PO SCH (22:26)
[2022-12-29] MEDS ORDERED: INSULIN (NOVOLOG) ASPART 100 UNITS/ML 10ML VIAL ONE (22:40)
[2022-12-30] MEDS: CALCIUM 500MG/VIT-D 200 UNITS COMBO TABLET (FP) PO SCH ×2 (06:50→17:02)
[2022-12-30] MEDS: INSULIN SLIDING SCALE (NOVOLOG) 1 VIAL SQ SCH ×4 (06:51→22:11)
[2022-12-30] MEDS: HEPARIN NA (PORCINE) 5,000 UNITS/ML 1ML VIAL SQ SCH ×3 (06:51→21:37)
[2022-12-30] MEDS: FAMOTIDINE 20 MG TABLET PO SCH (10:57)
[2022-12-30] MEDS: CITALOPRAM HYDROBROMIDE 10 MG TABLET PO SCH (10:57)
[2022-12-30 14:22] VITALS: BP 110/58; PULSE 62; TEMP 97.9
[2022-12-30] MEDS: ATORVASTATIN CA 20 MG TABLET (FP) PO SCH (21:37)
[2022-12-30] MEDS: DONEPEZIL HCL 10 MG TABLET (FP) PO SCH (21:37)
== END 2022-12-30 23:43 | DRG 178 ==
LOC: JER 20:32 → JERBED 12-24 02:07 → J7W 12-24 20:20 → OBSVTOIN 12-25 14:02
PROVIDERS: ADMIT Internal Medicine; ATTEND Internal Medicine
PROC: XW033E5 Introduction of Remdesivir Anti-infective into Peripheral Vein, Percutaneous Approach, New Technology Group 5 (ICD-10-PCS; principal; 2022-12-25)
DX: U07.1 COVID-19 (principal); N17.9 Acute kidney failure, unspecified; I50.9 Heart failure, unspecified; I11.0 Hypertensive heart disease with heart failure; E11.9 Type 2 diabetes mellitus without complications; F03.90 Unspecified dementia, unspecified severity, without behavioral disturbance, psychotic disturbance, mood disturbance, and anxiety; E78.00 Pure hypercholesterolemia, unspecified; M79.672 Pain in left foot; E11.649 Type 2 diabetes mellitus with hypoglycemia without coma; Z79.4 Long term (current) use of insulin; I48.91 Unspecified atrial fibrillation; R55 Syncope and collapse
CPT/HCPCS: 0241U-QW; 36415; 71045-TC-FY; 73562-TC-LT-FY; 73630-TC-LT; 76775-TC; 80048; 80053; 81003; 82550; 82962; 83036; 83735; 84100; 84550; 85025; 85610; 85730; 86140; 87040; 87633; 93005; 93010; 97116-GP; 97161-GP; 99285-25; G0378; J0248; J1644

== ENCOUNTER 2023-02-09 20:32 | Observation (INO) | payer OTHER ==
[2023-02-09 22:25] LABS: BASO % 0.5 % (0-2.0); HEMATOCRIT 40.5 % (32.4-45.2); HEMOGLOBIN 14.2 GM/dL (10.7-15.3); LYMPH % 11.3 % (8-40); MCH 32.3 pg (25.7-33.7); MCHC 35.1 g/dl (32.0-36.0); MEAN CELL VOLUME 91.9 fl (80-96); MEAN PLT VOLUME 8.1 fl (7.5-11.1); MONO % 9.2 % (3.8-10.2); PLATELET COUNT 268 10^3/uL (134-434); RDW 14.4 % (11.6-15.6); WHITE BLOOD COUNT 9.3 K/mm3 (4.0-10.0)
[2023-02-09] MEDS: SODIUM CHLORIDE 0.9% 500 ML INFUS.BAG IV ONE (22:25)
[2023-02-09 22:27] LABS: VENOUS O2 SATURATION 39.2 % (70-80); VENOUS PCO2 39.5 mmHg (38-52); VENOUS PH 7.425 (7.310-7.410)
[2023-02-09 22:31] LABS: INR 1.01 (0.83-1.09); PROTHROMBIN TIME (PATIENT) 11.7 SEC (9.7-13.0)
[2023-02-09 22:34] LABS: ACTIVATED PTT 28.5 SECONDS (25.2-36.5)
[2023-02-09 22:47] LABS: POTASSIUM 4.3 mmol/L (3.5-5.1)
[2023-02-09 22:49] LABS: CALCIUM 11.3 mg/dL (8.5-10.1)
[2023-02-09 22:50] LABS: ALBUMIN 3.6 g/dl (3.4-5.0); BLOOD UREA NITROGEN 28.3 mg/dL (7-18)
[2023-02-09 22:54] LABS: TOT PROT 7.4 g/dl (6.4-8.2)
[2023-02-09 22:59] LABS: CREATININE 1.8 mg/dL (0.55-1.3)
[2023-02-10] MEDS: ASPIRIN 81 MG CHEWABLE TABLETS PO ONE (00:51)
[2023-02-10] MEDS ORDERED: ASPIRIN 81 MG CHEWABLE TABLETS ONE (00:51)
[2023-02-10] MEDS: SODIUM CHLORIDE 1,000 ML IV SCH (02:05)
[2023-02-10 05:31] VITALS: BMI 20.3
[2023-02-10] MEDS: INSULIN ASPART SLIDING SCALE (NOVOLOG) 1 VIAL SQ SCH (06:27)
[2023-02-10] MEDS: PNEUMOC 20-VAL CONJ-DIP CRM/PF 0.5 ML SYRINGE IM ONE (10:09)
[2023-02-10] MEDS: CITALOPRAM HYDROBROMIDE 10 MG TABLET PO SCH (13:55)
[2023-02-10 14:28] LABS: URINE APPEARANCE Clear; URINE BILIRUBIN Negative (NEGATIVE); URINE COLOR Yellow; URINE GLUCOSE (UA) 3+ (NEGATIVE); URINE KETONE Trace (NEGATIVE); URINE LEUK ESTERASE Trace (NEGATIVE); URINE NITRITE Negative (NEGATIVE); URINE PROTEIN Negative (NEGATIVE)
[2023-02-10 14:32] LABS: EPI CELLS 1+ /uL (0-25.1); URINE BACTERIA FEW /uL (0-1359)
[2023-02-10] MEDS: DONEPEZIL HCL 10 MG TABLET (FP) PO SCH (21:05)
[2023-02-10] MEDS: ATORVASTATIN CA 20 MG TABLET (FP) PO SCH (21:08)
[2023-02-10] MEDS: DOCUSATE SODIUM 100 MG CAPSULE (FP) PO PRN (21:09)
[2023-02-11 08:20] LABS: BASO % 1.1 % (0-2.0); EOS % 4.1 % (0-4.5); HEMATOCRIT 39.4 % (32.4-45.2); HEMOGLOBIN 13.5 GM/dL (10.7-15.3); LYMPH % 23.8 % (8-40); MCHC 34.3 g/dl (32.0-36.0); MEAN CELL VOLUME 93.3 fl (80-96); MEAN PLT VOLUME 8.6 fl (7.5-11.1); MONO % 14.4 % (3.8-10.2); NEUT % 56.6 % (42.8-82.8); PLATELET COUNT 225 10^3/uL (134-434); RBC 4.22 M/mm3 (3.60-5.2); RDW 14.6 % (11.6-15.6); WHITE BLOOD COUNT 7.9 K/mm3 (4.0-10.0)
[2023-02-11 08:45] LABS: POTASSIUM 3.5 mmol/L (3.5-5.1)
[2023-02-11 08:55] LABS: BLOOD UREA NITROGEN 18.5 mg/dL (7-18); MAGNESIUM 1.7 mg/dL (1.8-2.4)
[2023-02-11 08:59] LABS: PHOSPHOROUS 1.4 mg/dL (2.5-4.9)
[2023-02-11 09:02] LABS: CALCIUM 9.5 mg/dL (8.5-10.1)
[2023-02-11] MEDS: MAGNESIUM 1GM/D5W 100ML - 100 ML IVPB IVPB ONE (10:24)
[2023-02-11] MEDS: NAPH,MB-DB/K PH,MBDB POWDER PACKET PO SCH (10:24)
[2023-02-11] MEDS ORDERED: INSULIN (NOVOLOG) ASPART 100 UNITS/ML 10ML VIAL ONE (12:07)
[2023-02-11] MEDS: ACETAMINOPHEN 325 MG TABLET (FP) PO PRN (21:23)
[2023-02-12 06:27] VITALS: RESP 20; TEMP 97.4
[2023-02-12 10:16] VITALS: BP 111/68; PULSE 84
== END 2023-02-12 13:51 | disposition home or self-care (01) ==
LOC: JER 20:32 → JERBED 02-10 00:06 → J4W 02-10 04:40
PROVIDERS: ADMIT Internal Medicine; ATTEND Internal Medicine
PROC: 3E023GC Introduction of Other Therapeutic Substance into Muscle, Percutaneous Approach (ICD-10-PCS; principal; 2023-02-10)
PROC: 3E013VG Introduction of Insulin into Subcutaneous Tissue, Percutaneous Approach (ICD-10-PCS; 2023-02-10)
PROC: 3E033GC Introduction of Other Therapeutic Substance into Peripheral Vein, Percutaneous Approach (ICD-10-PCS; 2023-02-10)
PROC: 3E0337Z Introduction of Electrolytic and Water Balance Substance into Peripheral Vein, Percutaneous Approach (ICD-10-PCS; 2023-02-10)
DX: N17.9 Acute kidney failure, unspecified (principal); E10.8 Type 1 diabetes mellitus with unspecified complications; F03.90 Unspecified dementia, unspecified severity, without behavioral disturbance, psychotic disturbance, mood disturbance, and anxiety; J45.909 Unspecified asthma, uncomplicated; E78.5 Hyperlipidemia, unspecified; I50.9 Heart failure, unspecified; Z87.891 Personal history of nicotine dependence; Z86.16 Personal history of COVID-19; Z88.0 Allergy status to penicillin; R77.8 Other specified abnormalities of plasma proteins; I48.91 Unspecified atrial fibrillation; R26.2 Difficulty in walking, not elsewhere classified; E83.42 Hypomagnesemia
CPT/HCPCS: 0241U-QW; 36415; 70450-TC; 71045-TC-FY; 80048; 80053; 81003; 82803; 82962; 83036; 83735; 84100; 84484; 85025; 85610; 85730; 87077; 87086; 90677; 93005; 93010; 93306-TC; 96361; 96372; 96374; 97116-GP; 97161-GP; 99285-25; G0009; G0378

== ENCOUNTER 2023-02-19 10:19 | Emergency (ER) | payer OTHER ==
[2023-02-19 10:57] VITALS: BP 117/61; PULSE 71; RESP 18; TEMP 98.3; BMI 24.6
[2023-02-19] MEDS ORDERED: methylPREDNISolone NA SUCC 125 MG/2 ML VIAL IVPB ONE (12:35)
[2023-02-19 13:00] LABS: BASO % 0.9 % (0-2.0); EOS % 4.2 % (0-4.5); HEMATOCRIT 34.4 % (32.4-45.2); HEMOGLOBIN 11.6 GM/dL (10.7-15.3); LYMPH % 27.2 % (8-40); MCH 31.6 pg (25.7-33.7); MCHC 33.6 g/dl (32.0-36.0); MEAN CELL VOLUME 93.8 fl (80-96); NEUT % 56.7 % (42.8-82.8); PLATELET COUNT 253 10^3/uL (134-434); RBC 3.67 M/mm3 (3.60-5.2); RDW 14.8 % (11.6-15.6); WHITE BLOOD COUNT 6.9 K/mm3 (4.0-10.0)
[2023-02-19 13:07] LABS: INR 1.03 (0.83-1.09); PROTHROMBIN TIME (PATIENT) 11.9 SEC (9.7-13.0)
[2023-02-19 13:10] LABS: ACTIVATED PTT 27.5 SECONDS (25.2-36.5)
[2023-02-19 13:20] LABS: CALCIUM 9.6 mg/dL (8.5-10.1)
[2023-02-19 13:21] LABS: ALBUMIN 3.2 g/dl (3.4-5.0); BLOOD UREA NITROGEN 14.4 mg/dL (7-18)
[2023-02-19 13:24] LABS: CREATININE 0.9 mg/dL (0.55-1.3)
[2023-02-19 13:26] LABS: BILIRUBIN,TOTAL 0.5 mg/dL (0.2-1); TOT PROT 6.3 g/dl (6.4-8.2)
[2023-02-19] MEDS: ALBUTEROL SO4 2.5/IPRATROPIUM 0.5 INH SOL 3 ML VIAL.NEB. NEB SCH ×4 (13:45→15:00)
[2023-02-19] MEDS ORDERED: methylPREDNISolone NA SUCC 125 MG/2 ML VIAL ONE (13:49)
[2023-02-19] MEDS ORDERED: ALBUTEROL SO4 2.5/IPRATROPIUM 0.5 INH SOL 3 ML VIAL.NEB. NEB ONE (13:50)
== END 2023-02-19 19:54 | disposition home or self-care (01) ==
LOC: JER 10:19
PROC: 3E033GC Introduction of Other Therapeutic Substance into Peripheral Vein, Percutaneous Approach (ICD-10-PCS; principal; 2023-02-19)
PROC: 3E0F7GC Introduction of Other Therapeutic Substance into Respiratory Tract, Via Natural or Artificial Opening (ICD-10-PCS; 2023-02-19)
DX: J45.901 Unspecified asthma with (acute) exacerbation (principal); R05.1 Acute cough; R06.02 Shortness of breath; R53.83 Other fatigue; R09.81 Nasal congestion; Z20.822 Contact with and (suspected) exposure to COVID-19
CPT/HCPCS: 0241U-QW; 36415; 71046-TC-FY; 80053; 84484; 85025; 85610; 85730; 93005; 93010; 99285-25

== ENCOUNTER 2023-03-01 00:15 | Emergency (ER) | payer OTHER ==
[2023-03-01 00:37] VITALS: BMI 21.4
[2023-03-01 01:18] LABS: BASO % 0.9 % (0-2.0); EOS % 4.4 % (0-4.5); HEMATOCRIT 34.2 % (32.4-45.2); HEMOGLOBIN 11.2 GM/dL (10.7-15.3); LYMPH % 32.5 % (8-40); MCH 31.5 pg (25.7-33.7); MCHC 32.7 g/dl (32.0-36.0); MEAN CELL VOLUME 96.4 fl (80-96); MEAN PLT VOLUME 8.2 fl (7.5-11.1); MONO % 10.6 % (3.8-10.2); NEUT % 51.6 % (42.8-82.8); PLATELET COUNT 236 10^3/uL (134-434); RBC 3.55 M/mm3 (3.60-5.2); RDW 15.3 % (11.6-15.6); WHITE BLOOD COUNT 6.5 K/mm3 (4.0-10.0)
[2023-03-01 01:20] LABS: VENOUS BASE EXCESS 1.7 mmol/L (-2-2); VENOUS O2 SATURATION 32.4 % (70-80); VENOUS PCO2 49.6 mmHg (38-52); VENOUS PH 7.366 (7.310-7.410)
[2023-03-01 01:38] LABS: POTASSIUM 4.4 mmol/L (3.5-5.1)
[2023-03-01 01:39] LABS: CALCIUM 9.6 mg/dL (8.5-10.1)
[2023-03-01 01:40] LABS: ALBUMIN 3.2 g/dl (3.4-5.0); BLOOD UREA NITROGEN 9.7 mg/dL (7-18)
[2023-03-01 01:43] LABS: CREATININE 1.2 mg/dL (0.55-1.3)
[2023-03-01 01:45] LABS: BILIRUBIN,TOTAL 0.5 mg/dL (0.2-1); TOT PROT 6.3 g/dl (6.4-8.2)
[2023-03-01 01:59] LABS: MAGNESIUM 1.8 mg/dL (1.8-2.4)
[2023-03-01 03:09] LABS: EPI CELLS 19 /uL (0-25.1); HYALINE CASTS 4 /uL (0-3.1); PH,URINE 5.5 (5.0-8.0); URINE APPEARANCE CLOUDY; URINE BACTERIA 46 /uL (0-1359); URINE BILIRUBIN NEGATIVE (NEGATIVE); URINE COLOR YELLOW; URINE GLUCOSE (UA) 3+ (NEGATIVE); URINE KETONE TRACE (NEGATIVE); URINE LEUK ESTERASE TRACE (NEGATIVE); URINE NITRITE NEGATIVE (NEGATIVE); URINE PROTEIN NEGATIVE (NEGATIVE); URINE RBC 15 /uL (0-23.9); URINE UROBILINOGEN 0.2 mg/dL (0.2-1.0); URINE WBC 38 /uL (0-25.8)
[2023-03-01 04:37] LABS: URINE CRYSTALS MANY /hpf
[2023-03-01 06:22] VITALS: BP 139/63; PULSE 64; RESP 15; TEMP 97.6
== END 2023-03-01 09:50 | disposition home or self-care (01) ==
LOC: JER 00:15
DX: R41.82 Altered mental status, unspecified (principal); Z20.822 Contact with and (suspected) exposure to COVID-19
CPT/HCPCS: 0241U-QW; 36415; 70450-TC; 71045-TC-FY; 80053; 81003; 82010; 82550; 82803; 82962; 83735; 84484; 85025; 87086; 93005; 93010; 99285-25

== ENCOUNTER 2023-03-24 00:31 | Observation (INO) | payer OTHER ==
[2023-03-24 01:35] LABS: BASO % 0.9 % (0-2.0); EOS % 3.5 % (0-4.5); HEMATOCRIT 43.8 % (32.4-45.2); HEMOGLOBIN 14.7 GM/dL (10.7-15.3); LYMPH % 33.3 % (8-40); MCH 32.6 pg (25.7-33.7); MCHC 33.7 g/dl (32.0-36.0); MEAN CELL VOLUME 96.7 fl (80-96); MEAN PLT VOLUME 8.7 fl (7.5-11.1); MONO % 10.4 % (3.8-10.2); NEUT % 51.9 % (42.8-82.8); PLATELET COUNT 275 10^3/uL (134-434); RBC 4.52 M/mm3 (3.60-5.2); RDW 14.6 % (11.6-15.6)
[2023-03-24 01:41] LABS: INR 0.91 (0.83-1.09); PROTHROMBIN TIME (PATIENT) 10.6 SEC (9.7-13.0)
[2023-03-24 01:43] LABS: ACTIVATED PTT 27.8 SECONDS (25.2-36.5)
[2023-03-24] MEDS: SODIUM CHLORIDE 0.9% 500 ML INFUS.BAG IV ONE ×2 (01:47→03:16)
[2023-03-24 02:15] LABS: VENOUS BASE EXCESS 2.1 mmol/L (-2-2); VENOUS O2 SATURATION 40.1 % (70-80); VENOUS PCO2 55.9 mmHg (38-52); VENOUS PH 7.337 (7.310-7.410)
[2023-03-24 02:17] LABS: LACTIC ACID 3.2 mmol/L (0.4-2.0)
[2023-03-24 02:19] LABS: ALBUMIN 3.9 g/dl (3.4-5.0); BLOOD UREA NITROGEN 22.8 mg/dL (7-18); CALCIUM 10.9 mg/dL (8.5-10.1)
[2023-03-24 02:22] LABS: CREATININE 1.4 mg/dL (0.55-1.3)
[2023-03-24 02:24] LABS: BILIRUBIN,TOTAL 0.6 mg/dL (0.2-1); TOT PROT 7.8 g/dl (6.4-8.2)
[2023-03-24 04:21] LABS: PH,URINE 5.5 (5.0-8.0); URINE APPEARANCE CLEAR; URINE BILIRUBIN NEGATIVE (NEGATIVE); URINE COLOR YELLOW; URINE GLUCOSE (UA) 3+ (NEGATIVE); URINE KETONE NEGATIVE (NEGATIVE); URINE LEUK ESTERASE NEGATIVE (NEGATIVE); URINE NITRITE NEGATIVE (NEGATIVE); URINE PROTEIN NEGATIVE (NEGATIVE); URINE UROBILINOGEN 0.2 mg/dL (0.2-1.0)
[2023-03-24 06:13] LABS: LACTIC ACID 2.8 mmol/L (0.4-2.0)
[2023-03-24] MEDS ORDERED: METOPROLOL TARTRATE 25 MG TABLET (FP) ONE ×2 (13:05→22:02)
[2023-03-24] MEDS: SODIUM CHLORIDE 1,000 ML IV STA (13:13)
[2023-03-24] MEDS: METOPROLOL TARTRATE 25 MG TABLET (FP) PO SCH (13:13)
[2023-03-24] MEDS ORDERED: ACETAMINOPHEN 325 MG TABLET (FP) PO PRN (15:03)
[2023-03-24] MEDS ORDERED: ALBUTEROL SO4 HFA INHALER IH PRN (15:15)
[2023-03-24] MEDS ORDERED: HEPARIN NA (PORCINE) 5,000 UNITS/ML 1ML VIAL ONE ×2 (15:34→22:03)
[2023-03-24] MEDS: HEPARIN NA (PORCINE) 5,000 UNITS/ML 1ML VIAL SQ SCH (15:39)
[2023-03-24] MEDS ORDERED: CALCIUM 500MG/VIT-D 200 UNITS COMBO TABLET (FP) PO SCH (16:00)
[2023-03-24] MEDS ORDERED: INSULIN (NOVOLOG) ASPART 100 UNITS/ML 10ML VIAL SQ SCH (16:45)
[2023-03-24] MEDS: INSULIN (NOVOLOG) ASPART 100 UNITS/ML 10ML VIAL SQ SCH (17:23)
[2023-03-24] MEDS ORDERED: ATORVASTATIN CA 20 MG TABLET (FP) ONE (22:02)
[2023-03-24] MEDS ORDERED: DONEPEZIL HCL 5 MG TABLET (FP) ONE (22:03)
[2023-03-24] MEDS: DONEPEZIL HCL 5 MG TABLET (FP) PO SCH (22:39)
[2023-03-24] MEDS: ATORVASTATIN CA 20 MG TABLET (FP) PO SCH (22:40)
[2023-03-25 08:29] LABS: POTASSIUM 4.1 mmol/L (3.5-5.1)
[2023-03-25 08:31] LABS: ALBUMIN 3.2 g/dl (3.4-5.0); BLOOD UREA NITROGEN 13.6 mg/dL (7-18); MAGNESIUM 1.8 mg/dL (1.8-2.4)
[2023-03-25 08:34] LABS: PHOSPHOROUS 3.5 mg/dL (2.5-4.9)
[2023-03-25 08:36] LABS: BILIRUBIN,TOTAL 0.8 mg/dL (0.2-1); TOT PROT 6.1 g/dl (6.4-8.2)
[2023-03-25 08:38] LABS: CALCIUM 8.9 mg/dL (8.5-10.1)
[2023-03-25 08:40] LABS: BASO % 0.5 % (0-2.0); EOS % 2.8 % (0-4.5); HEMATOCRIT 37.2 % (32.4-45.2); HEMOGLOBIN 12.1 GM/dL (10.7-15.3); LYMPH % 34.6 % (8-40); MCH 31.6 pg (25.7-33.7); MCHC 32.6 g/dl (32.0-36.0); MEAN CELL VOLUME 97.1 fl (80-96); MEAN PLT VOLUME 8.8 fl (7.5-11.1); MONO % 12.6 % (3.8-10.2); NEUT % 49.5 % (42.8-82.8); PLATELET COUNT 239 10^3/uL (134-434); RBC 3.83 M/mm3 (3.60-5.2); WHITE BLOOD COUNT 5.1 K/mm3 (4.0-10.0)
[2023-03-25] MEDS: NAPH,MB-DB/K PH,MBDB POWDER PACKET PO SCH (09:29)
[2023-03-25] MEDS: FAMOTIDINE 20 MG TABLET PO SCH (09:29)
[2023-03-25] MEDS: EMPAGLIFLOZIN (JARDIANCE) 25 MG TABLET PO SCH (09:29)
[2023-03-25] MEDS: CHLORTHALIDONE 25 MG TABLET PO SCH (09:30)
[2023-03-25] MEDS: ESCITALOPRAM OXALATE 10 MG TABLET PO SCH (09:30)
[2023-03-25] MEDS: LOSARTAN POTASSIUM 50 MG TABLET PO SCH (09:30)
[2023-03-26 02:03] VITALS: BMI 20.7
[2023-03-26 07:27] LABS: BASO % 0.4 % (0-2.0); EOS % 2.8 % (0-4.5); HEMOGLOBIN 13.1 GM/dL (10.7-15.3); MCH 33.2 pg (25.7-33.7); MCHC 34.6 g/dl (32.0-36.0); MONO % 10.8 % (3.8-10.2); PLATELET COUNT 252 10^3/uL (134-434); RBC 3.96 M/mm3 (3.60-5.2); RDW 13.9 % (11.6-15.6); WHITE BLOOD COUNT 4.1 K/mm3 (4.0-10.0)
[2023-03-26 07:47] LABS: POTASSIUM 3.3 mmol/L (3.5-5.1)
[2023-03-26 07:55] LABS: ALBUMIN 3.4 g/dl (3.4-5.0); CALCIUM 8.9 mg/dL (8.5-10.1)
[2023-03-26 07:56] LABS: BLOOD UREA NITROGEN 15.8 mg/dL (7-18); CREATININE 1.1 mg/dL (0.55-1.3)
[2023-03-26 07:57] LABS: BILIRUBIN,TOTAL 0.8 mg/dL (0.2-1); TOT PROT 6.4 g/dl (6.4-8.2)
[2023-03-26] MEDS: POTASSIUM CHLORIDE ORAL LIQUID 20 MEQ/15 ML PO ONE (10:18)
[2023-03-26 14:30] VITALS: BP 103/57; PULSE 58; RESP 20; TEMP 97.2
== END 2023-03-26 17:03 | disposition home or self-care (01) ==
LOC: JER 00:31 → JERBED 08:17 → J4W 03-25 19:44
PROVIDERS: ADMIT Internal Medicine; ATTEND Internal Medicine
PROC: 3E023GC Introduction of Other Therapeutic Substance into Muscle, Percutaneous Approach (ICD-10-PCS; principal; 2023-03-24)
PROC: 3E013VG Introduction of Insulin into Subcutaneous Tissue, Percutaneous Approach (ICD-10-PCS; 2023-03-24)
PROC: 3E0337Z Introduction of Electrolytic and Water Balance Substance into Peripheral Vein, Percutaneous Approach (ICD-10-PCS; 2023-03-24)
DX: I48.0 Paroxysmal atrial fibrillation (principal); E10.9 Type 1 diabetes mellitus without complications; E78.5 Hyperlipidemia, unspecified; J45.909 Unspecified asthma, uncomplicated; F03.90 Unspecified dementia, unspecified severity, without behavioral disturbance, psychotic disturbance, mood disturbance, and anxiety; K59.00 Constipation, unspecified; Z86.16 Personal history of COVID-19; E83.52 Hypercalcemia; R74.02 Elevation of levels of lactic acid dehydrogenase [LDH]; N17.9 Acute kidney failure, unspecified; Z88.0 Allergy status to penicillin; Z91.018 Allergy to other foods
CPT/HCPCS: 0241U-QW; 36415; 70450-TC; 71045-TC-FY; 80053; 81003; 82803; 82962; 83036; 83605; 83735; 84100; 84443; 84484; 85025; 85610; 85730; 86850; 86900; 86901; 87040; 87086; 87186; 93005; 93010; 96360; 96372; 97116-GP; 97161-GP; 99285-25; G0378; J1644

== ENCOUNTER 2023-04-03 12:31 | Emergency (ER) | payer OTHER ==
[2023-04-03 13:04] VITALS: RESP 18; BMI 23.4
[2023-04-03 14:00] LABS: BASO % 0.6 % (0-2.0); EOS % 1.8 % (0-4.5); HEMATOCRIT 40.7 % (32.4-45.2); HEMOGLOBIN 13.2 GM/dL (10.7-15.3); LYMPH % 17.9 % (8-40); MCH 31.8 pg (25.7-33.7); MCHC 32.4 g/dl (32.0-36.0); MEAN CELL VOLUME 98.3 fl (80-96); MEAN PLT VOLUME 7.9 fl (7.5-11.1); MONO % 10.1 % (3.8-10.2); NEUT % 69.6 % (42.8-82.8); PLATELET COUNT 275 10^3/uL (134-434); RBC 4.14 M/mm3 (3.60-5.2); RDW 13.9 % (11.6-15.6); WHITE BLOOD COUNT 6.4 K/mm3 (4.0-10.0)
[2023-04-03 14:17] LABS: POTASSIUM 3.9 mmol/L (3.5-5.1)
[2023-04-03 14:20] LABS: ALBUMIN 3.9 g/dl (3.4-5.0)
[2023-04-03 14:22] LABS: CREATININE 1.3 mg/dL (0.55-1.3)
[2023-04-03 14:24] LABS: BILIRUBIN,TOTAL 0.5 mg/dL (0.2-1); TOT PROT 7.6 g/dl (6.4-8.2)
[2023-04-03 14:29] LABS: CALCIUM 10.5 mg/dL (8.5-10.1)
[2023-04-03 19:30] VITALS: BP 147/60; PULSE 87; TEMP 98.2
== END 2023-04-03 21:09 | disposition home or self-care (01) ==
LOC: JER 12:31
DX: R19.7 Diarrhea, unspecified (principal); R41.0 Disorientation, unspecified
CPT/HCPCS: 36415; 76705-TC; 80053; 82962; 83690; 85025; 99284-25

== ENCOUNTER 2023-06-19 00:22 | Emergency (ER) | payer OTHER ==
[2023-06-19 00:59] VITALS: RESP 20; BMI 26.4
[2023-06-19] MEDS ORDERED: ACETAMINOPHEN 325 MG TABLET (FP) ONE (01:19)
[2023-06-19] MEDS: ACETAMINOPHEN 325 MG TABLET (FP) PO ONE (01:24)
[2023-06-19 03:21] VITALS: BP 138/84; PULSE 72
== END 2023-06-19 03:32 | disposition home or self-care (01) ==
LOC: JER 00:22
DX: M25.661 Stiffness of right knee, not elsewhere classified (principal); M25.662 Stiffness of left knee, not elsewhere classified
CPT/HCPCS: 73521-TC-FY; 73562-TC-LT-FY; 73562-TC-RT-FY; 99284-25

== ENCOUNTER 2023-07-20 03:30 | Observation (INO) | payer OTHER ==
[2023-07-20 03:43] VITALS: BMI 23.4
[2023-07-20 04:53] LABS: BASO % 0.5 % (0-2.0); HEMATOCRIT 39.2 % (32.4-45.2); HEMOGLOBIN 13.2 GM/dL (10.7-15.3); LYMPH % 9.6 % (8-40); MCHC 33.7 g/dl (32.0-36.0); MEAN CELL VOLUME 91.9 fl (80-96); MEAN PLT VOLUME 8.5 fl (7.5-11.1); MONO % 8.8 % (3.8-10.2); NEUT % 79.1 % (42.8-82.8); PLATELET COUNT 199 10^3/uL (134-434); RBC 4.27 M/mm3 (3.60-5.2); RDW 14.4 % (11.6-15.6); WHITE BLOOD COUNT 7.6 K/mm3 (4.0-10.0)
[2023-07-20] MEDS: SODIUM CHLORIDE 0.9% 500 ML INFUS.BAG IV ONE (04:55)
[2023-07-20] MEDS: ACETAMINOPHEN 1000 MG/100 ML BAG IVPB ONE (04:55)
[2023-07-20 05:04] LABS: POTASSIUM 4.4 mmol/L (3.5-5.1)
[2023-07-20 05:06] LABS: CALCIUM 9.1 mg/dL (8.5-10.1)
[2023-07-20 05:07] LABS: ALBUMIN 3.5 g/dl (3.4-5.0); BLOOD UREA NITROGEN 16.4 mg/dL (7-18)
[2023-07-20 05:10] LABS: CREATININE 1.2 mg/dL (0.55-1.3)
[2023-07-20 05:11] LABS: BILIRUBIN,TOTAL 1.1 mg/dL (0.2-1)
[2023-07-20 05:12] LABS: TOT PROT 6.9 g/dl (6.4-8.2)
[2023-07-20] MEDS ORDERED: ACETAMINOPHEN INJECTION 100 ML IVPB ONE (05:24)
[2023-07-20 08:57] LABS: EPI CELLS 4 /uL (0-25.1); HYALINE CASTS 0 /uL (0-3.1); URINE APPEARANCE CLEAR; URINE BACTERIA 3 /uL (0-1359); URINE BILIRUBIN NEGATIVE (NEGATIVE); URINE COLOR YELLOW; URINE GLUCOSE (UA) 3+ (NEGATIVE); URINE KETONE 1+ (NEGATIVE); URINE LEUK ESTERASE NEGATIVE (NEGATIVE); URINE NITRITE NEGATIVE (NEGATIVE); URINE PROTEIN NEGATIVE (NEGATIVE); URINE RBC 17 /uL (0-23.9); URINE UROBILINOGEN 0.2 mg/dL (0.2-1.0); URINE WBC 1 /uL (0-25.8)
[2023-07-20 09:51] LABS: INR 0.97 (0.83-1.09)
[2023-07-20 09:54] LABS: ACTIVATED PTT 30.3 SECONDS (25.2-36.5)
[2023-07-20] MEDS ORDERED: ALBUTEROL SO4 HFA INHALER IH PRN (14:05)
[2023-07-20] MEDS ORDERED: ACETAMINOPHEN 325 MG TABLET (FP) ONE (18:30)
[2023-07-20] MEDS ORDERED: INSULIN (NOVOLOG) ASPART 100 UNITS/ML 10ML VIAL ONE (18:31)
[2023-07-20] MEDS: INSULIN ASPART SLIDING SCALE (NOVOLOG) 1 VIAL SQ SCH (18:33)
[2023-07-20] MEDS: ACETAMINOPHEN 325 MG TABLET (FP) PO PRN (18:33)
[2023-07-20] MEDS ORDERED: DONEPEZIL HCL 5 MG TABLET (FP) ONE (20:17)
[2023-07-20] MEDS ORDERED: ATORVASTATIN CA 20 MG TABLET (FP) ONE (20:17)
[2023-07-20] MEDS: DONEPEZIL HCL 5 MG TABLET (FP) PO SCH (20:21)
[2023-07-20] MEDS: ATORVASTATIN CA 20 MG TABLET (FP) PO SCH (21:22)
[2023-07-21 06:37] LABS: BASO % 0.7 % (0-2.0); EOS % 4.2 % (0-4.5); HEMATOCRIT 39.7 % (32.4-45.2); HEMOGLOBIN 13.1 GM/dL (10.7-15.3); LYMPH % 30.6 % (8-40); MCH 30.8 pg (25.7-33.7); MEAN CELL VOLUME 93.2 fl (80-96); MEAN PLT VOLUME 9.1 fl (7.5-11.1); MONO % 16.4 % (3.8-10.2); NEUT % 48.1 % (42.8-82.8); PLATELET COUNT 178 10^3/uL (134-434); RBC 4.26 M/mm3 (3.60-5.2); RDW 13.9 % (11.6-15.6); WHITE BLOOD COUNT 4.6 K/mm3 (4.0-10.0)
[2023-07-21 06:52] LABS: POTASSIUM 4.3 mmol/L (3.5-5.1)
[2023-07-21 06:56] LABS: CALCIUM 8.8 mg/dL (8.5-10.1)
[2023-07-21 06:57] LABS: BLOOD UREA NITROGEN 15.4 mg/dL (7-18)
[2023-07-21 07:00] LABS: CREATININE 0.9 mg/dL (0.55-1.3)
[2023-07-21] MEDS: ESCITALOPRAM OXALATE 10 MG TABLET PO SCH (09:56)
[2023-07-21] MEDS: MEMANTINE HCL 10 MG TABLET (FP) PO SCH (09:57)
[2023-07-21] MEDS: LOSARTAN POTASSIUM 50 MG TABLET PO SCH (09:57)
[2023-07-21] MEDS: EMPAGLIFLOZIN (JARDIANCE) 25 MG TABLET PO SCH (09:57)
[2023-07-21] MEDS: FAMOTIDINE 20 MG TABLET PO SCH (09:57)
[2023-07-21] MEDS: METOPROLOL TARTRATE 5 MG/5 ML VIAL IVPUSH ONE (18:43)
[2023-07-21] MEDS ORDERED: METOPROLOL TARTRATE 5 MG/5 ML VIAL IVPUSH PRN (18:46)
[2023-07-21] MEDS: ENOXAPARIN NA (PORCINE) 60 MG/0.6 ML DISP.SYRIN SQ SCH (21:09)
[2023-07-21 22:04] VITALS: RESP 18
[2023-07-22 07:20] LABS: BASO % 0.7 % (0-2.0); EOS % 2.8 % (0-4.5); MCH 30.9 pg (25.7-33.7); MCHC 33.5 g/dl (32.0-36.0); MEAN CELL VOLUME 92.5 fl (80-96); MEAN PLT VOLUME 8.1 fl (7.5-11.1); MONO % 15.1 % (3.8-10.2); NEUT % 41.4 % (42.8-82.8); PLATELET COUNT 177 10^3/uL (134-434); RBC 4.21 M/mm3 (3.60-5.2); RDW 14.3 % (11.6-15.6)
[2023-07-22 08:01] LABS: CALCIUM 8.2 mg/dL (8.5-10.1)
[2023-07-22 08:02] LABS: ALBUMIN 3.1 g/dl (3.4-5.0); BLOOD UREA NITROGEN 19.5 mg/dL (7-18); MAGNESIUM 2.2 mg/dL (1.8-2.4)
[2023-07-22 08:04] LABS: CREATININE 0.9 mg/dL (0.55-1.3)
[2023-07-22 08:05] LABS: PHOSPHOROUS 4.2 mg/dL (2.5-4.9)
[2023-07-22 08:06] LABS: BILIRUBIN,TOTAL 0.8 mg/dL (0.2-1); TOT PROT 6.5 g/dl (6.4-8.2)
[2023-07-22 08:16] LABS: POTASSIUM 3.9 mmol/L (3.5-5.1)
[2023-07-22] MEDS: metoPROLOL SUCCINATE 25 MG TAB.SR.24H (FP) PO SCH (10:57)
[2023-07-22 22:40] VITALS: BP 100/56; PULSE 67; TEMP 97.8
== END 2023-07-22 23:16 ==
LOC: JER 03:30 → JERBED 13:52 → J4S 21:53
PROVIDERS: ADMIT Internal Medicine; ATTEND Internal Medicine
PROC: 3E033NZ Introduction of Analgesics, Hypnotics, Sedatives into Peripheral Vein, Percutaneous Approach (ICD-10-PCS; principal; 2023-07-20)
PROC: 3E023GC Introduction of Other Therapeutic Substance into Muscle, Percutaneous Approach (ICD-10-PCS; 2023-07-20)
PROC: 3E013VG Introduction of Insulin into Subcutaneous Tissue, Percutaneous Approach (ICD-10-PCS; 2023-07-20)
PROC: 3E0337Z Introduction of Electrolytic and Water Balance Substance into Peripheral Vein, Percutaneous Approach (ICD-10-PCS; 2023-07-20)
PROC: 3E033GC Introduction of Other Therapeutic Substance into Peripheral Vein, Percutaneous Approach (ICD-10-PCS; 2023-07-20)
DX: R53.1 Weakness (principal); G30.9 Alzheimer's disease, unspecified; B34.9 Viral infection, unspecified; R41.82 Altered mental status, unspecified; I48.91 Unspecified atrial fibrillation; R01.1 Cardiac murmur, unspecified; E11.9 Type 2 diabetes mellitus without complications; Z87.891 Personal history of nicotine dependence
CPT/HCPCS: 0241U-QW; 36415; 70450-TC; 71045-TC-FY; 80048; 80053; 81003; 82550; 82962; 83605; 83735; 84100; 84484; 85025; 85610; 85730; 86850; 86900; 86901; 87040; 87086; 93005; 93010; 96372; 96374; 96375; 99285-25; G0378; J0131

== ENCOUNTER 2023-09-12 02:05 | Observation (INO) | payer OTHER ==
[2023-09-12 02:43] LABS: BASO % 1.3 % (0-2.0); EOS % 3.4 % (0-4.5); HEMATOCRIT 41.2 % (32.4-45.2); HEMOGLOBIN 13.7 GM/dL (10.7-15.3); LYMPH % 35.4 % (8-40); MCH 30.9 pg (25.7-33.7); MCHC 33.2 g/dl (32.0-36.0); MEAN CELL VOLUME 92.8 fl (80-96); MEAN PLT VOLUME 8.8 fl (7.5-11.1); MONO % 9.3 % (3.8-10.2); NEUT % 50.6 % (42.8-82.8); PLATELET COUNT 228 10^3/uL (134-434); RBC 4.43 M/mm3 (3.60-5.2); RDW 15.2 % (11.6-15.6); WHITE BLOOD COUNT 7.5 K/mm3 (4.0-10.0)
[2023-09-12 02:49] LABS: VENOUS BASE EXCESS 0.2 mmol/L (-2-2); VENOUS O2 SATURATION 64.2 % (70-80); VENOUS PCO2 49.8 mmHg (38-52); VENOUS PH 7.345 (7.310-7.410)
[2023-09-12 02:50] LABS: INR 0.89 (0.83-1.09); PROTHROMBIN TIME (PATIENT) 10.3 SEC (9.7-13.0)
[2023-09-12 02:53] LABS: ACTIVATED PTT 30.7 SECONDS (25.2-36.5)
[2023-09-12 03:02] LABS: POTASSIUM 4.7 mmol/L (3.5-5.1)
[2023-09-12 03:04] LABS: ALBUMIN 3.6 g/dl (3.4-5.0); BLOOD UREA NITROGEN 18.4 mg/dL (7-18); CALCIUM 9.7 mg/dL (8.5-10.1); MAGNESIUM 2.1 mg/dL (1.8-2.4)
[2023-09-12 03:08] LABS: CREATININE 1.5 mg/dL (0.55-1.3)
[2023-09-12 03:09] LABS: BILIRUBIN,TOTAL 0.5 mg/dL (0.2-1); TOT PROT 7.1 g/dl (6.4-8.2)
[2023-09-12] MEDS: SODIUM CHLORIDE 1,000 ML IV STA (05:38)
[2023-09-12 07:43] LABS: METHADONE, UR NEGATIVE (NEGATIVE); PHENCYCLIDINE,URINE NEGATIVE (NEGATIVE); URINE AMPHETAMINES NEGATIVE (NEGATIVE); URINE BENZODIAZEPINES NEGATIVE (NEGATIVE)
[2023-09-12 07:44] LABS: URINE BARBITURATES NEGATIVE (NEGATIVE)
[2023-09-12 07:45] LABS: COCAINE, UR NEGATIVE (NEGATIVE); OPIATES, URI NEGATIVE (NEGATIVE)
[2023-09-12 08:14] LABS: PH,URINE 5.5 (5.0-8.0); URINE APPEARANCE CLEAR; URINE BILIRUBIN NEGATIVE (NEGATIVE); URINE COLOR YELLOW; URINE GLUCOSE (UA) 3+ (NEGATIVE); URINE KETONE TRACE (NEGATIVE); URINE LEUK ESTERASE NEGATIVE (NEGATIVE); URINE NITRITE NEGATIVE (NEGATIVE); URINE PROTEIN NEGATIVE (NEGATIVE); URINE UROBILINOGEN 0.2 mg/dL (0.2-1.0)
[2023-09-12] MEDS ORDERED: ACETAMINOPHEN 325 MG TABLET (FP) PO PRN (11:27)
[2023-09-12] MEDS ORDERED: ALBUTEROL SO4 HFA INHALER IH PRN (12:05)
[2023-09-12 12:31] VITALS: BMI 21.2
[2023-09-12] MEDS: ASPIRIN 81 MG CHEWABLE TABLETS PO SCH (12:39)
[2023-09-12] MEDS ORDERED: INSULIN ASPART SLIDING SCALE (NOVOLOG) 1 VIAL SQ ONE (16:45)
[2023-09-12] MEDS: INSULIN ASPART SLIDING SCALE (NOVOLOG) 1 VIAL SQ SCH (16:50)
[2023-09-12] MEDS: hydrALAZINE HCL 25 MG TABLET (FP) PO ONE (17:44)
[2023-09-12] MEDS: HEPARIN NA (PORCINE) 5,000 UNITS/ML 1ML VIAL SQ SCH (21:30)
[2023-09-12] MEDS ORDERED: PATIENT'S OWN MEDICATION (NON-FORMULARY) (Diclofenac Sodium [Voltaren] 100 GM Gel..Gram.) TP SCH (22:00)
[2023-09-13] MEDS: EMPAGLIFLOZIN (JARDIANCE) 25 MG TABLET PO SCH (06:02)
[2023-09-13 07:33] LABS: BASO % 0.9 % (0-2.0); EOS % 3.9 % (0-4.5); HEMATOCRIT 43.2 % (32.4-45.2); HEMOGLOBIN 14.2 GM/dL (10.7-15.3); LYMPH % 33.1 % (8-40); MCH 31.1 pg (25.7-33.7); MCHC 32.9 g/dl (32.0-36.0); MEAN CELL VOLUME 94.4 fl (80-96); MEAN PLT VOLUME 9.3 fl (7.5-11.1); MONO % 7.7 % (3.8-10.2); NEUT % 54.4 % (42.8-82.8); PLATELET COUNT 171 10^3/uL (134-434); RBC 4.58 M/mm3 (3.60-5.2); RDW 14.5 % (11.6-15.6)
[2023-09-13 08:12] LABS: ALBUMIN 3.6 g/dl (3.4-5.0); BLOOD UREA NITROGEN 16.1 mg/dL (7-18); CALCIUM 8.9 mg/dL (8.5-10.1)
[2023-09-13 08:18] LABS: BILIRUBIN,TOTAL 1.1 mg/dL (0.2-1); TOT PROT 7.1 g/dl (6.4-8.2)
[2023-09-13 10:42] VITALS: RESP 18
[2023-09-13] MEDS: FAMOTIDINE 20 MG TABLET PO SCH (10:42)
[2023-09-13] MEDS: ESCITALOPRAM OXALATE 10 MG TABLET PO SCH (10:42)
[2023-09-13] MEDS: DONEPEZIL HCL 10 MG TABLET (FP) PO SCH (10:42)
[2023-09-13] MEDS: metoPROLOL SUCCINATE 25 MG TAB.SR.24H (FP) PO SCH (10:42)
[2023-09-13] MEDS: LOSARTAN POTASSIUM 50 MG TABLET PO SCH (10:44)
[2023-09-13] MEDS: NAPH,MB-DB/K PH,MBDB POWDER PACKET PO SCH (12:15)
[2023-09-13] MEDS: MEMANTINE HCL 10 MG TABLET (FP) PO SCH (12:16)
[2023-09-13] MEDS: ATORVASTATIN CA 20 MG TABLET (FP) PO SCH (21:19)
[2023-09-14 07:33] LABS: BASO % 0.8 % (0-2.0); EOS % 3.4 % (0-4.5); HEMATOCRIT 39.6 % (32.4-45.2); HEMOGLOBIN 13.2 GM/dL (10.7-15.3); LYMPH % 37.1 % (8-40); MCH 31.2 pg (25.7-33.7); MCHC 33.4 g/dl (32.0-36.0); MEAN CELL VOLUME 93.2 fl (80-96); MEAN PLT VOLUME 8.8 fl (7.5-11.1); MONO % 9.3 % (3.8-10.2); NEUT % 49.4 % (42.8-82.8); PLATELET COUNT 198 10^3/uL (134-434); RBC 4.25 M/mm3 (3.60-5.2); RDW 14.1 % (11.6-15.6); WHITE BLOOD COUNT 5.4 K/mm3 (4.0-10.0)
[2023-09-14 07:53] LABS: BLOOD UREA NITROGEN 14.6 mg/dL (7-18)
[2023-09-14 08:34] VITALS: BP 135/67; PULSE 71; TEMP 98.4
== END 2023-09-14 16:47 ==
LOC: JER 02:05 → JERBED 10:05 → J4S 11:25
PROVIDERS: ADMIT Internal Medicine; ATTEND Nurse Practitioner
PROC: 3E023GC Introduction of Other Therapeutic Substance into Muscle, Percutaneous Approach (ICD-10-PCS; principal; 2023-09-12)
PROC: 3E013VG Introduction of Insulin into Subcutaneous Tissue, Percutaneous Approach (ICD-10-PCS; 2023-09-12)
PROC: 3E0337Z Introduction of Electrolytic and Water Balance Substance into Peripheral Vein, Percutaneous Approach (ICD-10-PCS; 2023-09-12)
DX: E11.9 Type 2 diabetes mellitus without complications (principal); I10 Essential (primary) hypertension; I48.0 Paroxysmal atrial fibrillation; R41.82 Altered mental status, unspecified; G30.9 Alzheimer's disease, unspecified; R55 Syncope and collapse; R53.1 Weakness; I48.91 Unspecified atrial fibrillation; Z88.0 Allergy status to penicillin; Z87.891 Personal history of nicotine dependence
CPT/HCPCS: 0241U-QW; 36415; 70450-TC; 71045-TC-FY; 80048; 80053; 80307; 81003; 82803; 82962; 83735; 84484; 85025; 85610; 85730; 87086; 87186; 93005; 93010; 96360; 96372; 97116-GP; 97161-GP; 99285-25; G0378; J1644

== ENCOUNTER 2023-10-09 10:24 | Emergency (ER) | payer OTHER ==
[2023-10-09 10:46] VITALS: BMI 25.4
[2023-10-09] MEDS ORDERED: ACETAMINOPHEN INJECTION 100 ML ONE (11:24)
[2023-10-09] MEDS: ACETAMINOPHEN 1000 MG/100 ML BAG IVPB ONE (11:27)
[2023-10-09 11:28] LABS: BASO % 0.5 % (0-2.0); EOS % 3.9 % (0-4.5); HEMATOCRIT 44.5 % (32.4-45.2); HEMOGLOBIN 14.6 GM/dL (10.7-15.3); LYMPH % 9.3 % (8-40); MCH 30.6 pg (25.7-33.7); MCHC 32.8 g/dl (32.0-36.0); MEAN CELL VOLUME 93.2 fl (80-96); MONO % 9.7 % (3.8-10.2); NEUT % 76.6 % (42.8-82.8); PLATELET COUNT 232 10^3/uL (134-434); RBC 4.78 M/mm3 (3.60-5.2); RDW 14.7 % (11.6-15.6); WHITE BLOOD COUNT 6.7 K/mm3 (4.0-10.0)
[2023-10-09 11:59] LABS: CALCIUM 9.7 mg/dL (8.5-10.1)
[2023-10-09 12:00] LABS: ALBUMIN 3.8 g/dl (3.4-5.0); BLOOD UREA NITROGEN 13.8 mg/dL (7-18); MAGNESIUM 1.9 mg/dL (1.8-2.4)
[2023-10-09 12:03] LABS: CREATININE 1.4 mg/dL (0.55-1.3)
[2023-10-09 12:05] LABS: TOT PROT 7.8 g/dl (6.4-8.2)
[2023-10-09] MEDS: SODIUM CHLORIDE 0.9% 500 ML INFUS.BAG IV ONE (12:36)
[2023-10-12 10:06] VITALS: BP 147/71; PULSE 75; RESP 19; TEMP 98.5
== END 2023-10-09 15:52 | disposition home or self-care (01) ==
LOC: JER 10:24
PROC: 3E033NZ Introduction of Analgesics, Hypnotics, Sedatives into Peripheral Vein, Percutaneous Approach (ICD-10-PCS; principal; 2023-10-09)
DX: U07.1 COVID-19 (principal); R53.1 Weakness; R53.83 Other fatigue
CPT/HCPCS: 0241U-QW; 36415; 71045-TC-FY; 80053; 83735; 84484; 85025; 93005; 93010; 99285-25; J0131